=== PATIENT | female | born 1945 | race Caucasian/White ===

== ENCOUNTER 2018-01-27 17:18 | Observation (INO) | payer MEDICARE ==
[~2018-01-27] VITALS: Ht 154.9 cm; Wt 47.9 kg
[~2018-01-27 17:18] MED LIST: AMOX500 PO; ANAS1 PO; CELE100 PO; CITA20 PO; CLON1 PO; HYDACE10B PO; HYDACE5 PO; HYDACE7.5 PO; HYDCHL50 PO; OXYACE5T PO; OXYC10TA19 PO; PSEU120ER PO; VITS/SUPPS; Zithromax250 MG PO; [UNRECOGNIZED DRUG - OTHER]
[2018-01-27 17:54] LABS: BASOPHILS ABSOLUTE AUTO 0.02 K/mm3 (0.00-0.23); BASOPHILS PERCENT AUTO 0 % (0-2); EOSINOPHILS ABSOLUTE AUTO 0.06 K/mm3 (0.00-0.68); EOSINOPHILS PERCENT AUTO 1 % (0-6); Hematocrit 39.8 % (33.0-51.0); Hemoglobin 13.5 g/dL (11.5-16.0); IMMATURE GRAN ABSOLUTE AUTO 0.01 K/mm3 (0.00-0.10); IMMATURE GRAN PERCENT AUTO 0 % (0-1); LYMPHOCYTES ABSOLUTE AUTO 0.75 K/mm3 (0.84-5.20); LYMPHOCYTES PERCENT AUTO 16 % (21-46); MONOCYTES ABSOLUTE AUTO 0.34 K/mm3 (0.16-1.47); MONOCYTES PERCENT AUTO 7 % (4-13); Mean Corpuscular HGB 33.5 pg (26.0-34.0); Mean Corpuscular HGB Conc 33.9 g/dL (31.5-36.5); Mean Corpuscular Volume 99 fL (80-100); Mean Platelet Volume 9.5 fL (9.1-12.4); NEUTROPHILS ABSOLUTE AUTO 3.54 K/mm3 (1.96-9.15); NEUTROPHILS PERCENT AUTO 75 % (41-73); Platelet Count 267 K/mm3 (150-400); RDW Coefficient Variation 14.4 % (11.7-14.2); RDW Standard Deviation 52.7 fL (35.1-46.3); Red Blood Cell Count 4.03 M/mm3 (3.80-5.20); White Blood Cell Count 4.72 K/mm3 (4.00-11.30)
[2018-01-27 18:15] LABS: Magnesium, Blood 1.5 mg/dL (1.6-2.4); Troponin I <0.015 ng/mL (0.000-0.040)
[2018-01-27 18:24] LABS: Alanine Aminotransfer (ALT/SGP 15 U/L (12-78); Albumin, Blood 3.2 g/dL (3.4-5.0); Albumin/Globulin Ratio 0.7 (0.8-1.8); Alk Phos 95 U/L (50-136); Anion Gap 7 mmol/L (6-16); Aspartate Aminotrans (AST/SGOT 19 U/L (12-37); Bilirubin, Total 0.4 mg/dL (0.1-1.0); Blood Urea Nitrogen 11 mg/dL (8-24); Bun/Creatinine Ratio 22.4 (12.0-20.0); CO2, Blood 34 mmol/L (21-32); Calcium, Blood 9.9 mg/dL (8.5-10.1); Chloride, Blood 99 mmol/L (98-108); Creatinine, Blood 0.49 mg/dL (0.40-1.00); Globulin, Blood 4.7 g/dL (2.2-4.0); Glomerular Filtration Rate >60 (60-); Glucose, Blood 105 mg/dL (70-99); Potassium, Blood 2.4 mmol/L (3.5-5.5); Sodium, Blood 140 mmol/L (136-145); Total Protein, Blood 7.9 g/dL (6.4-8.2)
[2018-01-27] MEDS ORDERED: RISP.5 PO (18:59)
[2018-01-27] MEDS ORDERED: DULO30 (22:35)
[2018-01-28 01:41] LABS: Source, Urine Clean Catch
[2018-01-28 01:43] LABS: Bilirubin, Urine Neg (Neg); Blood, Urine Neg (Neg); Glucose Qualitative, Urine Neg (Neg); Ketones, Urine 3+ (Neg); Leukocyte Esterase, Urine Neg (Neg); Nitrite, Urine Neg (Neg); Protein, Urine 3+ (Neg); Urobilinogen, Urine NORM (Normal)
[2018-01-28 01:53] LABS: Appearance, Urine Clear (Clear); Color, Urine Yellow (P-Yellow)
[2018-01-28 01:54] LABS: Bacteria Not Seen /hpf; Mucus Light (0-Heavy); Red Blood Cells, Urine Rare /hpf (0-2); Squamous Epithelial Cells Few /hpf (Few); White Blood Cells, Urine Rare /hpf (0-5)
[2018-01-28 03:14] LABS: Magnesium, Blood 2.1 mg/dL (1.6-2.4)
[2018-01-28 03:39] LABS: Albumin, Blood 3.2 g/dL (3.4-5.0); Anion Gap 9 mmol/L (6-16); Blood Urea Nitrogen 13 mg/dL (8-24); Bun/Creatinine Ratio 32.5 (12.0-20.0); CO2, Blood 31 mmol/L (21-32); Calcium, Blood 9.4 mg/dL (8.5-10.1); Chloride, Blood 100 mmol/L (98-108); Glomerular Filtration Rate >60 (60-); Glucose, Blood 95 mg/dL (70-99); Phosphorus, Blood 2.5 mg/dL (2.5-4.9); Potassium, Blood 2.4 mmol/L (3.5-5.5); Sodium, Blood 140 mmol/L (136-145)
[2018-01-28] MEDS ORDERED: FENT50TP TOP (16:12)
[2018-01-28] MEDS ORDERED: POTCHL20ER PO (16:12)
== END 2018-01-28 16:23 | disposition home or self-care (01) ==
LOC: ER 17:18 → MEDS 17:19
PROVIDERS: Emergency Medicine; Family Medicine
DX: E87.6 Hypokalemia (principal); G89.29 Other chronic pain; E83.42 Hypomagnesemia; I49.3 Ventricular premature depolarization; C50.911 Malignant neoplasm of unspecified site of right female breast; C34.90 Malignant neoplasm of unspecified part of unspecified bronchus or lung; C20 Malignant neoplasm of rectum; F17.210 Nicotine dependence, cigarettes, uncomplicated; Z91.040 Latex allergy status; Z79.899 Other long term (current) drug therapy; Z90.11 Acquired absence of right breast and nipple
CPT/HCPCS: 36415; 71046; 80053; 80069; 81001; 83735; 83880; 84132; 84484; 85025; 93005; 93010; 96365; 96366; 96367; 96375; 99285; G0378; J0360; J2001; J2060; J3475; J3480; J7030

== ENCOUNTER → 2019-08-12 | Outpatient (CLI) | payer MEDICARE ==
[~2019-08-12] MED LIST changes: +DULO30; +FENT50TP TOP; +POTCHL20ER PO; +RISP.5 PO
[2019-08-15 14:49] LABS: Stool Occult Blood Guaiac 1 Neg (Neg); Stool Occult Blood Guaiac 2 Neg (Neg)
[2019-08-15 14:50] LABS: Stool Occult Blood Guaiac 3 Neg (Neg)
== END | disposition home or self-care (01) ==
LOC: OLS 15:46 → LAB 15:46 → LAB SHORT 15:46 → LAB FUT 07-23 15:25
PROVIDERS: Internal Medicine
DX: D64.9 Anemia, unspecified (principal)
CPT/HCPCS: 82272

== ENCOUNTER 2020-03-09 11:50 | Inpatient (IN) | payer MEDICARE ==
[~2020-03-09] VITALS: Ht 152.4 cm; Wt 51.6 kg
[2020-03-09 12:37] LABS: BASOPHILS ABSOLUTE AUTO 0.03 K/mm3 (0.00-0.23); BASOPHILS PERCENT AUTO 0 % (0-2); EOSINOPHILS ABSOLUTE AUTO 0.08 K/mm3 (0.00-0.68); EOSINOPHILS PERCENT AUTO 1 % (0-6); Hematocrit 30.8 % (33.0-51.0); Hemoglobin 10.2 g/dL (11.5-16.0); IMMATURE GRAN ABSOLUTE AUTO 0.04 K/mm3 (0.00-0.10); IMMATURE GRAN PERCENT AUTO 1 % (0-1); LYMPHOCYTES ABSOLUTE AUTO 0.77 K/mm3 (0.84-5.20); LYMPHOCYTES PERCENT AUTO 9 % (21-46); MONOCYTES ABSOLUTE AUTO 1.07 K/mm3 (0.16-1.47); MONOCYTES PERCENT AUTO 13 % (4-13); Mean Corpuscular HGB 34.8 pg (26.0-34.0); Mean Corpuscular HGB Conc 33.1 g/dL (31.5-36.5); Mean Corpuscular Volume 105 fL (80-100); Mean Platelet Volume 10.2 fL (9.1-12.4); NEUTROPHILS ABSOLUTE AUTO 6.32 K/mm3 (1.96-9.15); NEUTROPHILS PERCENT AUTO 76 % (41-73); Platelet Count 210 K/mm3 (150-400); RDW Coefficient Variation 13.9 % (11.7-14.2); RDW Standard Deviation 53.3 fL (35.1-46.3); Red Blood Cell Count 2.93 M/mm3 (3.80-5.20); White Blood Cell Count 8.31 K/mm3 (4.00-11.30)
[2020-03-09] MEDS ORDERED: ALPRAZOLAM0.5 M1 PO (12:37)
[2020-03-09] MEDS ORDERED: DULOXETINE HCL60 M1 PO ×2 (12:41→16:05)
[2020-03-09] MEDS ORDERED: Klor-Con 1010 MEQ PO (12:42)
[2020-03-09 12:47] LABS: International Normalized Ratio 1.01; Prothrombin Time Results 10.8 Sec (9.7-11.5)
[2020-03-09 13:00] LABS: Alanine Aminotransfer (ALT/SGP 14 U/L (12-78); Albumin, Blood 2.5 g/dL (3.4-5.0); Albumin/Globulin Ratio 0.6 (0.8-1.8); Alk Phos 75 U/L (50-136); Anion Gap 6 mmol/L (6-16); Aspartate Aminotrans (AST/SGOT 18 U/L (12-37); Bilirubin, Total 0.8 mg/dL (0.1-1.0); Blood Urea Nitrogen 15 mg/dL (8-24); Bun/Creatinine Ratio 26.6 (12.0-20.0); CO2, Blood 28 mmol/L (21-32); Calcium, Blood 8.9 mg/dL (8.5-10.1); Chloride, Blood 105 mmol/L (98-108); Creatinine, Blood 0.56 mg/dL (0.40-1.00); Globulin, Blood 4.2 g/dL (2.2-4.0); Glomerular Filtration Rate >60 (60-); Glucose, Blood 113 mg/dL (70-99); Potassium, Blood 2.5 mmol/L (3.5-5.5); Sodium, Blood 139 mmol/L (136-145); Total Protein, Blood 6.7 g/dL (6.4-8.2)
[2020-03-09 14:51] LABS: Source, Urine Catheter
[2020-03-09 14:58] LABS: Bilirubin, Urine Neg (Neg); Blood, Urine 1+ (Neg); Glucose Qualitative, Urine Neg (Neg); Ketones, Urine Neg (Neg); Leukocyte Esterase, Urine Neg (Neg); Nitrite, Urine Neg (Neg); Protein, Urine 3+ (Neg); Urobilinogen, Urine 1+ (Normal)
[2020-03-09 15:03] LABS: Appearance, Urine Clear (Clear); Color, Urine Yellow (P-Yellow)
[2020-03-09 15:05] LABS: Bacteria Few /hpf; Red Blood Cells, Urine 0-2 /hpf (0-2); Squamous Epithelial Cells Few /hpf (Few)
[2020-03-09] MEDS ORDERED: HYDROCODONE-AC1 EAC7 PO (16:05)
--- NOTE | 2020-03-09 19:54 | NUR ---
PT ARRIVED TO UNIT FROM ED THIS EVENING. TRANSFERRED TO BED FROM [facility] AND REMOVED EXCESS BEDDING FROM UNDERNEATH PT. ADMINISTERED MEDS PER ORDERS. PT DECLINED MORPHINE, STATING DID NOT NEED IN ADDITION TO ORDERED FENTANYL PATCH. CALL LIGHT IN REACH. REPORTED TO BAKARI CHATTERJEE.
[2020-03-10 04:35] LABS: Hematocrit 29.3 % (33.0-51.0); Hemoglobin 9.7 g/dL (11.5-16.0); Mean Corpuscular HGB 34.6 pg (26.0-34.0); Mean Corpuscular HGB Conc 33.1 g/dL (31.5-36.5); Mean Corpuscular Volume 105 fL (80-100); Platelet Count 203 K/mm3 (150-400); RDW Coefficient Variation 13.8 % (11.7-14.2); RDW Standard Deviation 53.2 fL (35.1-46.3); White Blood Cell Count 6.87 K/mm3 (4.00-11.30)
[2020-03-10 04:56] LABS: Anion Gap 5 mmol/L (6-16); Blood Urea Nitrogen 14 mg/dL (8-24); Bun/Creatinine Ratio 25.9 (12.0-20.0); CO2, Blood 25 mmol/L (21-32); Calcium, Blood 8.3 mg/dL (8.5-10.1); Chloride, Blood 111 mmol/L (98-108); Creatinine, Blood 0.54 mg/dL (0.40-1.00); Glomerular Filtration Rate >60 (60-); Glucose, Blood 99 mg/dL (70-99); Potassium, Blood 3.4 mmol/L (3.5-5.5); Sodium, Blood 141 mmol/L (136-145)
--- NOTE | 2020-03-10 06:22 | NUR ---
PT VSS T/O NIGHT. PAIN MGD PER EMAR W/REP RELIEF. RLE SHORTENED/EXT ROTATED, CAP REFILL WNL. PT SHIFTING SELF IN BED, ALLOWING MINIMAL REPOSITIONING. PT NPO POST MIDNIGHT FOR PLAN FOR OR TODAY; IVF CONT PER ORDERS. PT USING CALL LIGHT FOR ASSISTANCE, WILL CONT TO MONITOR UNTIL REP GIVEN TO ONCOMING RN.
--- NOTE | 2020-03-10 15:48 | NUR ---
PT TO OR
--- NOTE | 2020-03-10 19:30 | NUR ---
ARRIVAL TO UNIT PT ARRIVED TO UNIT FROM PACU AT APPROX 1930 S/P RIGHT HIP SURGERY VIA HOSPITAL BED. IS A/OX4. PT DENIES SOB, N/T, OR CP. REPORTS PAIN PEDRO. ABLE TO ASSIT WITH REPOSITIONING SELF. AQUACEL TO RIGHT HIP C.D.I. IVF INFUSING PER ORDERS. IBARRA IN PLACE DRAINING CL YELLOW URINE. SCD AND ICE IN PLACE. PT RESTING IN BED WITH CALL LIGHT IN REACH. WILL CONT TO MONITOR
--- NOTE | 2020-03-11 04:08 | NUR ---
SHIFT SUMMARY POD 1 RIGHT HIP NAILING, AQUACEL C/D/I. A/OX4. PAIN MANAGED WITH PO MEDICATION/ TORADOL, ICE, AND REPOSITIONING. IBARRA IN PLACE DRAINING CL YELLOW URINE. PEDRO PO INTAKE. ENC/EDU I.S USE AND TURN/COUGH/DB. ABX AND IVF INFUSED PER ORDERS. PLAN TO WORK WITH PT/OT. PT CURRENTLY IN BED RESTING WITH EYES CLOSED. HAS CALL LIGHT IN REACH. WILL CONT TO MONITOR AND GIVE REPORT TO ONCOMING RN.
--- NOTE | 2020-03-11 17:18 | NUR ---
summary sitting up in chair much of shift. two person transfer to commode, needs frequent cues to assist self oob and to commode.pt reports pain is currently well controlled at 3/10 to right hip. right hip dressisng dry and intact
[2020-03-12 04:27] LABS: Hematocrit 21.6 % (33.0-51.0); Hemoglobin 6.8 g/dL (11.5-16.0); Mean Corpuscular HGB Conc 31.5 g/dL (31.5-36.5); Mean Platelet Volume 10.4 fL (9.1-12.4); Platelet Count 225 K/mm3 (150-400); RDW Coefficient Variation 14.2 % (11.7-14.2); RDW Standard Deviation 55.7 fL (35.1-46.3)
[2020-03-12 04:31] LABS: Mean Corpuscular Volume 108 fL (80-100)
[2020-03-12 04:46] LABS: Anion Gap 6 mmol/L (6-16); Blood Urea Nitrogen 31 mg/dL (8-24); Bun/Creatinine Ratio 40.3 (12.0-20.0); CO2, Blood 25 mmol/L (21-32); Calcium, Blood 8.1 mg/dL (8.5-10.1); Chloride, Blood 112 mmol/L (98-108); Creatinine, Blood 0.77 mg/dL (0.40-1.00); Glomerular Filtration Rate >60 (60-); Glucose, Blood 122 mg/dL (70-99); Potassium, Blood 4.4 mmol/L (3.5-5.5); Sodium, Blood 143 mmol/L (136-145)
--- NOTE | 2020-03-12 06:57 | NUR ---
POD2 PATIENT UP WITH 1 PERSON ASSIST, GAIT BELT AND FWW. PATIENT IS HAVING PAIN IN HER NECK, THAT IS RELIEVED WITH ICE BAG. SHE IS ALERT AND ORIENTED AND AWARE OF HE LIMITATIONS. SHE IS EATING DRINKING AND VOIDING. HER DRESSINGS ON THE RT LEG AND HIP ARE CLEAR AND DRY. NO ACUTE CHANGES.
[2020-03-12 09:30] LABS: Percent Saturation 29.6 % (15.0-50.0)
--- NOTE | 2020-03-12 10:53 | NUR ---
03/12/20 1053 Sona Dave VERIFICATIONS: EDIT CHART.
--- NOTE | 2020-03-12 19:14 | NUR ---
SHIFT SUMMARY PT HAD BLOOD TRANSFUSION TODAY. WORKED WITH THERAPY. PAIN COULD BE BETTER CONTROLLED BUT PT STATES TOLERABLE. HOPEFUL TO GO HOME INSTEAD OF SNF.
[2020-03-13 04:27] LABS: Hematocrit 26.8 % (33.0-51.0); Hemoglobin 8.7 g/dL (11.5-16.0); Mean Corpuscular HGB 33.6 pg (26.0-34.0); Mean Corpuscular HGB Conc 32.5 g/dL (31.5-36.5); Mean Platelet Volume 9.8 fL (9.1-12.4); Platelet Count 243 K/mm3 (150-400); RDW Standard Deviation 64.2 fL (35.1-46.3); Red Blood Cell Count 2.59 M/mm3 (3.80-5.20)
[2020-03-13 04:29] LABS: Mean Corpuscular Volume 104 fL (80-100)
--- NOTE | 2020-03-13 06:25 | NUR ---
PATIENT UP IN CHAIR MOST OF THE NIGHT. SHE WAS UP AT LEAST ONCE WITH ASSISTANCE TO HELP CLEAN HER UP AFTER SHE WAS INCONTINENT. PATIENT SLEPT FOR LONG PERIODS OF TIME. HER RT HIP, BUTTOCK AND THIGH ARE ALL LARGER THAT THE LT. SHE HAS BRUISING THAT IS STARTING TO SEEP DOWN HER THIGH. WHEN STANDING HER RT LEG IS EXTERNALLY ROTATED. SHE STATES THAT THIS IS NORMAL SHE HAS SCOLIOSIS. NO ACUTE CHANGES SHE LOOKS FORWARD TO [facility]K HOME SOON.
--- NOTE | 2020-03-13 17:53 | NUR ---
SUMMARY PT REPORTS INCREASED PAIN TODAY RIGHT HIP AND UPPER THIGH. PT WAS HESITANT TO PARTICIPATE WITH PT/OT SHE THOUGHT SHE HAD A BLOOD CLOT IN LEG AND THAT SHE SHOULD NOT BE MOVING IT. EDUCATION PROVIDED TO PATIENT REGARFING HEMATOMA. PT IS HOPEFUL HER PAIN IS LESS TOMORROW AND THAT SHE CAN DISCHARGE TO HOME
[2020-03-14 04:44] LABS: Hematocrit 27.4 % (33.0-51.0); Hemoglobin 8.8 g/dL (11.5-16.0); Mean Corpuscular HGB 33.5 pg (26.0-34.0); Mean Corpuscular HGB Conc 32.1 g/dL (31.5-36.5); Mean Corpuscular Volume 104 fL (80-100); Mean Platelet Volume 10.3 fL (9.1-12.4); Platelet Count 289 K/mm3 (150-400); RDW Standard Deviation 61.2 fL (35.1-46.3); Red Blood Cell Count 2.63 M/mm3 (3.80-5.20); White Blood Cell Count 6.51 K/mm3 (4.00-11.30)
[2020-03-14 05:01] LABS: Anion Gap 2 mmol/L (6-16); Blood Urea Nitrogen 20 mg/dL (8-24); Bun/Creatinine Ratio 31.9 (12.0-20.0); CO2, Blood 32 mmol/L (21-32); Chloride, Blood 105 mmol/L (98-108); Creatinine, Blood 0.63 mg/dL (0.40-1.00); Glomerular Filtration Rate >60 (60-); Glucose, Blood 97 mg/dL (70-99); Potassium, Blood 4.5 mmol/L (3.5-5.5); Sodium, Blood 139 mmol/L (136-145)
--- NOTE | 2020-03-14 05:37 | NUR ---
SHIFT SUMMARY POD 4 R GAMMA NAIL. AA0X4, PT UP TO BSC WITH 1 ASSIST. MEDICATED FOR PAIN PER EMAR, TOLERATED WELL, PO PAIN MEDS. PT RESTING IN BED T/O SHIFT. PLAN IS FOR POSSIBLE DISCHARGE TODAY.
--- NOTE | 2020-03-14 11:24 | NUR ---
R UPPER HIP DRESSING CHANGED PER DR. BOSE.
[2020-03-14] MEDS ORDERED: POTCHL20ER PO (14:45)
--- NOTE | 2020-03-14 15:26 | NUR ---
DISCHARGE COMPLETED AT THIS TIME, PT STATE SHE HAS ALL NEEDED MEDICATIONS INCLUDING PAIN MEDS AT HER HOUSE AND DOES NOT NEED ANY RX TO TAKE HOME.
--- NOTE | 2020-03-14 15:50 | NUR ---
DISCHARGE PT DISCHARGED TO HOME WITH HER . PT ESCORTED TO VEHICLE VIA W/C. PT IS A&O X4, RESP UNLABORED, ON RA, VSS. PT IS TOLERATING PO INTAKE, PAIN HAS BEEN WNL WITH 1 PO PERCOCET Q4 HRS PRN. D/C/INSTRUCTIONS PROVIDED, EDUCATION REINFORCED, PT STATES UNDERSTANDING & DENIES QUESTIONS.
== END 2020-03-14 16:00 | disposition home health service (06) | DRG 481 ==
LOC: ER 11:50 → SURS 15:44
PROVIDERS: Emergency Medicine; Internal Medicine; Nurse Practitioner Acute Care; ADMIT Internal Medicine
PROC: 0QS636Z Reposition Right Upper Femur with Intramedullary Internal Fixation Device, Percutaneous Approach (ICD-10-PCS; principal; 2020-03-09)
PROC: 30233N1 Transfusion of Nonautologous Red Blood Cells into Peripheral Vein, Percutaneous Approach (ICD-10-PCS; 2020-03-12)
DX: S72.141A Displaced intertrochanteric fracture of right femur, initial encounter for closed fracture (principal); L76.32 Postprocedural hematoma of skin and subcutaneous tissue following other procedure; W19.XXXA Unspecified fall, initial encounter; Y93.9 Activity, unspecified; D64.9 Anemia, unspecified; E87.6 Hypokalemia; G89.29 Other chronic pain; Z20.828 Contact with and (suspected) exposure to other viral communicable diseases; F41.1 Generalized anxiety disorder; F17.210 Nicotine dependence, cigarettes, uncomplicated; C50.919 Malignant neoplasm of unspecified site of unspecified female breast; Z85.048 Personal history of other malignant neoplasm of rectum, rectosigmoid junction, and anus
CPT/HCPCS: 36415; 36430; 51702; 71045; 73502; 73552; 80048; 80053; 81001; 82728; 83540; 83550; 83735; 85025; 85027; 85610; 86850; 86900; 86901; 86923; 93005; 93010; 96365-59; 96366-59; 96375-59; 96376-59; 97110; 97116; 97162; 97166; 97530; 97535; 99285-25; C1713; C1769; J0690; J1100; J2270; J2405; J2704; J3010; J3480; J7030; J7120; P9016; U0002

== ENCOUNTER → 2021-10-27 | Outpatient (CLI) | payer MEDICARE ==
[~2021-10-27] MED LIST changes: +ALPRAZOLAM0.5 M1 PO; +DULOXETINE HCL60 M1 PO; +HYDROCODONE-AC1 EAC7 PO; +Klor-Con 1010 MEQ PO
[2021-10-27 18:30] LABS: U Amphetamine Screen Not Detected; U Barbituate Screen Not Detected; U Benzodiazapine Screen DETECTED; U Buprenorphine Screen Not Detected; U Cannabinoids Screen Not Detected; U Cocaine Screen Not Detected; U Methadone Screen Not Detected; U Methamphetamine Screen Not Detected; U Opiates Screen DETECTED; U Oxycodone Screen DETECTED; U Phencyclidine Screen Not Detected; U Propoxyphene Screen Not Detected
== END | disposition home or self-care (01) ==
LOC: LAB 13:47 → LAB SHORT 13:47
PROVIDERS: Internal Medicine
DX: Z51.81 Encounter for therapeutic drug level monitoring (principal); Z79.899 Other long term (current) drug therapy

== ENCOUNTER 2022-09-05 17:20 | Emergency (ER) | payer OTHER, MEDICARE ==
[~2022-09-05] VITALS: Ht 149.9 cm; Wt 47.6 kg
== END 2022-09-05 19:55 | disposition home or self-care (01) ==
LOC: ER 17:20
DX: S42.212A Unspecified displaced fracture of surgical neck of left humerus, initial encounter for closed fracture (principal); W01.198A Fall on same level from slipping, tripping and stumbling with subsequent striking against other object, initial encounter; F17.200 Nicotine dependence, unspecified, uncomplicated; Z91.040 Latex allergy status; Z79.899 Other long term (current) drug therapy
CPT/HCPCS: 70450; 73060; 73200

== ENCOUNTER 2023-02-07 07:45 | Day surgery (SDC) | payer MEDICARE, OTHER ==
[~2023-02-07] VITALS: Ht 152.4 cm; Wt 48.9 kg
[~2023-02-07 07:45] MED LIST changes: +BUSP5 PO; +DOCU100 PO; +GUAI600T33 PO; +METO50 PO; +Prednisone10 MG; +VISBIOME 112.51 EACH PO; +XARELTO20 MG PO
--- NOTE | 2023-02-07 08:18 | NUR ---
02/07/23 0818 Kathy Presley 0814 TETRACAINE TO LEFT EYE 0816 PLEDGET TO LEFT EYE BY [facility].FELIBERTO
[2023-02-07 10:50] VITALS: BP 164/95
--- NOTE | 2023-02-07 11:25 | NUR ---
02/07/23 1125 [facility] UPON ARRIVAL TO [facility], PT PULSE SHOWING 150'S, PLACED ON THREE LEAD EKG MONITORING WITH DR LINARES AT BEDSIDE. DR LINARES GAVE ANOTHER 1 MG DOSE OF METOPROLOL, PER DR LINARES SHE HAD ALREADY RECEIVED 2MG PRIOR TO ARRIVAL TO [facility]. PATIENT MONITORED ON THREE LEAD EKG FOLLOWING ADMINISTRATION. PER DR LINARES PATIENT OK TO DISCHARGE IF HR MAINTAINED 100-110. PATIENT MONITORED ON THREE LEAD UNTIL DISCHARGE. HR MAINTAINED 90'S-110 AND PATIENT DID NOT REPORT SOB, CHEST PAIN, HEADACHE, OR HEART POUNDING. PATIENT STATED SHE FELT NORMAL AND EXPRESSED READINESS TO GO HOME. RN DISCUSSED DISCHARGE INSTRUCTIONS WHILE CONTINUING TO MONITOR THREE LEAD AND HEART RATE. PATIENT DISCHARGED WITH HR SUSTAINING 90'S TO 105. PATIENT EDUCATED BY DR LINARES AND RN TO FOLLOW UP WITH PCP AND MONITOR HEART RATE AND BLOOD PRESSURE AT HOME AND TO TAKE HER BLOOD PRESSURE MEDICATIONS PRESCRIBED. PATIENT VERBALIZED UNDERSTANDING.
== END 2023-02-07 11:12 | disposition home or self-care (01) ==
LOC: ORSCSDS 07:45
PROVIDERS: Student in an Organized Health Care Education/Training Program
PROC: 08RK3JZ Replacement of Left Lens with Synthetic Substitute, Percutaneous Approach (ICD-10-PCS; principal; 2023-02-07 09:00)
DX: H25.12 Age-related nuclear cataract, left eye (principal); H21.81 Floppy iris syndrome; Z96.1 Presence of intraocular lens; I10 Essential (primary) hypertension; F17.210 Nicotine dependence, cigarettes, uncomplicated; Z79.899 Other long term (current) drug therapy; Z79.01 Long term (current) use of anticoagulants; G62.9 Polyneuropathy, unspecified
CPT/HCPCS: J2250; J3010; J7040; V2632

== ENCOUNTER 2023-08-05 19:24 | Inpatient (IN) | payer MEDICARE, OTHER ==
[~2023-08-05] VITALS: Ht 152.4 cm; Wt 46.3 kg
[2023-08-05 20:04] LABS: BASOPHILS ABSOLUTE AUTO 0.04 K/mm3 (0.00-0.23); BASOPHILS PERCENT AUTO 0 % (0-2); EOSINOPHILS ABSOLUTE AUTO 0.03 K/mm3 (0.00-0.68); EOSINOPHILS PERCENT AUTO 0 % (0-6); Hemoglobin 9.9 g/dL (11.5-16.0); IMMATURE GRAN ABSOLUTE AUTO 0.05 K/mm3 (0.00-0.10); IMMATURE GRAN PERCENT AUTO 0 % (0-1); LYMPHOCYTES ABSOLUTE AUTO 0.75 K/mm3 (0.84-5.20); LYMPHOCYTES PERCENT AUTO 6 % (21-46); MONOCYTES ABSOLUTE AUTO 1.24 K/mm3 (0.16-1.47); MONOCYTES PERCENT AUTO 10 % (4-13); Mean Corpuscular HGB 33.9 pg (26.0-34.0); Mean Corpuscular HGB Conc 31.9 g/dL (31.5-36.5); Mean Corpuscular Volume 106 fL (80-100); Mean Platelet Volume 10.5 fL (9.1-12.4); NEUTROPHILS ABSOLUTE AUTO 9.89 K/mm3 (1.96-9.15); NEUTROPHILS PERCENT AUTO 82 % (41-73); Platelet Count 229 K/mm3 (150-400); RDW Coefficient Variation 14.2 % (11.7-14.2); RDW Standard Deviation 55.8 fL (35.1-46.3); Red Blood Cell Count 2.92 M/mm3 (3.80-5.20)
[2023-08-05 20:15] LABS: Albumin/Globulin Ratio 0.6 (0.8-1.8); Bilirubin, Total 0.2 mg/dL (0.1-1.0); Bun/Creatinine Ratio 36.9 (12.0-20.0); Calcium, Blood 10.9 mg/dL (8.5-10.1); Creatinine, Blood 1.3 mg/dL (0.40-1.00); Globulin, Blood 5.2 g/dL (2.2-4.0); Potassium, Blood 4.1 mmol/L (3.5-5.5); Total Protein, Blood 8.2 g/dL (6.4-8.2)
[2023-08-05 21:12] LABS: Base Excess Venous -0.3 mmol/L; Bicarbonate Venous 23.5 mmol/L (24.0-30.0)
[2023-08-05 21:13] LABS: pH Blood Venous 7.23 (7.34-7.37)
[2023-08-05 21:29] LABS: Source, Urine Clean Catch
[2023-08-05 21:34] LABS: Bilirubin, Urine Neg (Neg); Blood, Urine 1+ (Neg); Glucose Qualitative, Urine Neg (Neg); Ketones, Urine Neg (Neg); Leukocyte Esterase, Urine Neg (Neg); Nitrite, Urine Neg (Neg); Protein, Urine 3+ (Neg); Urobilinogen, Urine NORM (Normal)
[2023-08-05 21:45] LABS: Appearance, Urine Clear (Clear); Color, Urine Pale Yellow (P-Yellow)
[2023-08-05 21:47] LABS: Bacteria Few /hpf; Red Blood Cells, Urine 0-2 /hpf (0-2); Squamous Epithelial Cells Mod /hpf (Few); White Blood Cells, Urine 0-2 /hpf (0-5)
[2023-08-05 21:51] LABS: Influenza A, PCR NEGATIVE (NEGATIVE); Influenza B, PCR NEGATIVE (NEGATIVE); Resp Syncytial Virus, PCR NEGATIVE (NEGATIVE); SARS-Cov-2 (COVID-19) PCR, MMC NEGATIVE (NEGATIVE)
[2023-08-05 22:01] LABS: U Amphetamine Screen Not Detected; U Barbituate Screen Not Detected; U Benzodiazapine Screen DETECTED; U Buprenorphine Screen Not Detected; U Cannabinoids Screen Not Detected; U Cocaine Screen Not Detected; U Methadone Screen Not Detected; U Methamphetamine Screen Not Detected; U Opiates Screen DETECTED; U Oxycodone Screen Not Detected; U Phencyclidine Screen Not Detected; U Propoxyphene Screen Not Detected
[2023-08-06] VITALS (13 sets, daily range): BP systolic 94–144; BP diastolic 56–72
[2023-08-06] MEDS ORDERED: MAGNESIUM OXID500 MG (00:02)
[2023-08-06] MEDS ORDERED: UNISOM PM PAIN1 EACH (00:02)
[2023-08-06 03:04] LABS: Base Excess Venous 1.1 mmol/L; Bicarbonate Venous 25.2 mmol/L (24.0-30.0); PCO2 Venous 49.7 mmHg (38-42); pH Blood Venous 7.34 (7.34-7.37)
[2023-08-06 03:08] LABS: BASOPHILS ABSOLUTE AUTO 0.02 K/mm3 (0.00-0.23); BASOPHILS PERCENT AUTO 0 % (0-2); EOSINOPHILS ABSOLUTE AUTO 0.02 K/mm3 (0.00-0.68); EOSINOPHILS PERCENT AUTO 0 % (0-6); Hematocrit 24.4 % (33.0-51.0); Hemoglobin 7.5 g/dL (11.5-16.0); IMMATURE GRAN ABSOLUTE AUTO 0.02 K/mm3 (0.00-0.10); IMMATURE GRAN PERCENT AUTO 0 % (0-1); LYMPHOCYTES ABSOLUTE AUTO 0.83 K/mm3 (0.84-5.20); LYMPHOCYTES PERCENT AUTO 9 % (21-46); MONOCYTES ABSOLUTE AUTO 0.79 K/mm3 (0.16-1.47); MONOCYTES PERCENT AUTO 9 % (4-13); Mean Corpuscular HGB Conc 30.7 g/dL (31.5-36.5); Mean Corpuscular Volume 108 fL (80-100); Mean Platelet Volume 10.6 fL (9.1-12.4); NEUTROPHILS ABSOLUTE AUTO 7.19 K/mm3 (1.96-9.15); NEUTROPHILS PERCENT AUTO 81 % (41-73); Platelet Count 190 K/mm3 (150-400); RDW Coefficient Variation 14.2 % (11.7-14.2); Red Blood Cell Count 2.27 M/mm3 (3.80-5.20); White Blood Cell Count 8.87 K/mm3 (4.00-11.30)
[2023-08-06 03:44] LABS: Albumin, Blood 2.5 g/dL (3.4-5.0); Albumin/Globulin Ratio 0.6 (0.8-1.8); Bilirubin, Total 0.2 mg/dL (0.1-1.0); Bun/Creatinine Ratio 33.8 (12.0-20.0); Calcium, Blood 9.7 mg/dL (8.5-10.1); Creatinine, Blood 1.36 mg/dL (0.40-1.00); Globulin, Blood 4.1 g/dL (2.2-4.0); Potassium, Blood 4.7 mmol/L (3.5-5.5); Total Protein, Blood 6.6 g/dL (6.4-8.2)
--- NOTE | 2023-08-06 05:45 | NUR ---
END OF SHIFT SUMMARY PT RESTED MOST OF THE NIGHT WITHOUT ISSUE. SLEEPS DEEP AND EASILY REORIENTED WHEN WOKEN UP. IDENTIFIES TOWN, HOSPITAL, SELF, DAUGHTER, AND APPROX DATE. VSS WITH SPO2 > 93% ON 2-3 LPM NC, HR 80'S, SR WITH SBP 100'S. NO URINE OR BM SINCE ADMIT. DAUGHTER NATHALIE HERE UPON ADMIT, THEN HOME FOR THE NIGHT. DAUGHTER STATES THAT PT MAY HAVE RAN OUT OF PAIN MEDICATION AT HOME AND VISITED FAMILY MEMBERS THAT MAY HAVE PROVIDED OTHER FORMS OF MEDICATION SUCH FENTANYL. PT DOES NOT ADMIT TO USING ANYTHING AT THIS TIME. MEPELEX APPLIED TO REDNESS ON COCCYX AREA. NO OTHER ACUTE CHANGES SINCE BEFORE ADMIT TO ICU. WILL CONTINUE TO MONITOR PT UNTIL REPORT GIVEN TO AM RN.
--- NOTE | 2023-08-06 11:53 | NUR ---
REASSESSMENT PT HAD HER ECHO THIS MORNING AND THEN HAS BEEN SITTING UP IN A CHAIR. SHE IS ALERT AND ABLE TO ANSWER THE ORIENTATION QUESTIONS CORRECTLY, BUT APPEARS CONFUSED WITH FURTHER CONVERSATION. SHE SEEMS TO NOT HEAR QUESTIONS OR NOT FULLY COMPREHEND THEM. SHE REACHES AND GRABS FOR THINGS WITH HER HANDS THAT AREN'T THERE AND HER OVERALL COORDINATION IS OFF. PT'S FLORECITA HAS BEEN AT THE BEDSIDE THIS AM AND SAYS THIS IS NOT HER BASELINE. SHE SAYS PT NORMALLY CAN HOLD AN APPROPRIATE CONVERSATION AND DO HER ADLS WITHOUT ASSISTANCE. PT'S LUNGS ARE CLEAR, ON 1-2L AT REST, HAS NEEDED UP TO 4L WITH ACTIVITY. SR IN THE 90S AT REST, UP TO 1 TEENS WITH ACTIVITY. BP STABLE. PT GOT UP TO BSC AND HAD A BM THIS AM. DR. ORTIZ ROUNDED ON PT AND GAVE OK FOR PT TO EAT, ORDERED PT/OT AND GAVE OK FOR PT TO BE MED NOT TELE. .
--- NOTE | 2023-08-06 16:56 | NUR ---
SHIFT SUMMARY PT'S MENTATION HAS SLOWLY BEEN IMPROVING THROUGHOUT THE DAY. SHE NAPPED MOST OF THE AFTERNOON AND IS NOW AWAKE, IN THE CHAIR, TALKING TO HER DAUGHTER. MOST OF HER CONFUSION NOW SEEMS TO COME FROM HER HEARING LOSS AND NOT BEING ABLE TO HEAR WHAT PEOPLE ARE SAYING. COORDINATION IS STILL A LITTLE OFF, BUT PT DOESN'T SEEM TO BE HALLUCINATING OR PICKING AT THINGS THAT AREN'T THERE. LUNGS ARE CLEAR. ON 2-3L/NC. ATTEMPTED TO WEAN OFF BUT SPO2 WAS 88% ON RA. BP STABLE. GETTING UP TO THE COMMODE TO VOID BUT URINE OUTPUT IS LOW. PT REFUSED A SHOWER FOR MOST OF THE DAY, BUT FINALLY CONCEDED WITH HER DAUGHTER HERE TO HELP CONVINCE HER.
--- NOTE | 2023-08-06 18:35 | NUR ---
TRANSFER PT TRANSFERRED TO 341 VIA WITH RN. PT'S FLORECITA WITH HER AT TIME OF TRANSFER. REPORT GIVEN TO BAKARI SAM. ALL BELONGINGS INCLUDING PT'S DENTURES. CECY IN ROOM WITH PT AT ARRIVAL.
--- NOTE | 2023-08-06 19:24 | NUR ---
DAY SHIFT SUMMARY: PATIENT TRANSFERRED FROM ICU SHORTLY BEFORE SHIFT CHANGE, VIA WHEELCHAIR ESCORT. O2 @ 3LPM VIA NC. STAND AND PIVOT TRANSFER WITH ASSIST. CONTINENT WITH BRIEFS FOR DIGNITY. PLEASANTLY CONFUSED, BUT EASILY RE-ORIENTED. [id number] AND WEARING GLASSES. DAUGHTER, JOEL, IS AT BEDSIDE. REPORT TO ONCOMING RN.
[2023-08-06 21:13] LABS: Stool Occult Blood Guaiac 1 Pos (Neg)
[2023-08-07 02:16] VITALS: BP 186/93
[2023-08-07 03:09] VITALS: BP 145/77
[2023-08-07 05:03] LABS: BASOPHILS ABSOLUTE AUTO 0.01 K/mm3 (0.00-0.23); BASOPHILS PERCENT AUTO 0 % (0-2); EOSINOPHILS ABSOLUTE AUTO 0.21 K/mm3 (0.00-0.68); EOSINOPHILS PERCENT AUTO 3 % (0-6); Hematocrit 25.9 % (33.0-51.0); IMMATURE GRAN ABSOLUTE AUTO 0.06 K/mm3 (0.00-0.10); IMMATURE GRAN PERCENT AUTO 1 % (0-1); LYMPHOCYTES ABSOLUTE AUTO 0.84 K/mm3 (0.84-5.20); LYMPHOCYTES PERCENT AUTO 10 % (21-46); MONOCYTES ABSOLUTE AUTO 0.98 K/mm3 (0.16-1.47); MONOCYTES PERCENT AUTO 12 % (4-13); Mean Corpuscular HGB 33.1 pg (26.0-34.0); Mean Corpuscular HGB Conc 30.9 g/dL (31.5-36.5); Mean Corpuscular Volume 107 fL (80-100); Mean Platelet Volume 10.3 fL (9.1-12.4); NEUTROPHILS ABSOLUTE AUTO 6.38 K/mm3 (1.96-9.15); NEUTROPHILS PERCENT AUTO 75 % (41-73); Platelet Count 195 K/mm3 (150-400); RDW Coefficient Variation 14.1 % (11.7-14.2); RDW Standard Deviation 55.6 fL (35.1-46.3); Red Blood Cell Count 2.42 M/mm3 (3.80-5.20); White Blood Cell Count 8.48 K/mm3 (4.00-11.30)
--- NOTE | 2023-08-07 05:35 | NUR ---
SHIFT SUMMARY NOC PT A/O X 4. PLEASANT AND COOPERATIVE WITH CARE. RECONCILED SOME OF PT RX WITH HOSPITALIST, PT REQUESTED HOME NORCO RX, BUT HOSPITALIST DECLINED TO ORDER, DUE TO PT OD ON HOME NARCOTICS MONDAY, TYLENOL Q6PRN ORDERED INSTEAD. AFTER SHIFT CHANGE PT DAUGHTER REPORTED SILAS RED BLOOD IN PT STOOL, THERE WAS A HAT IN COMMODE, AND SAMPLE COLLECTED AND HOSPITALIST NOTIFIED THAT PT HGB DECREASED FROM 9.9-7.5 OVERNIGHT AND OCCULT STOOL LAB ORDERED, STOOL CAME BACK POSITIVE FOR OCCULT BLOOD AND HOSPITALIST ORDERED GI CONSULT, WHICH HAS BEEN CALLED IN TO ANSWERING SERVICE. SPUTUM SAMPLE ALSO COLLECTED AND AWAITING RESULTS. PT IS ON O2 3L/NC. PT IS CURRENTLY RESTING WITH BED IN LOWEST POSITION, AND CALL LIGHT WITHIN REACH.
[2023-08-07 05:37] LABS: Albumin, Blood 2.6 g/dL (3.4-5.0); Albumin/Globulin Ratio 0.6 (0.8-1.8); Bilirubin, Total 0.3 mg/dL (0.1-1.0); Calcium, Blood 9.6 mg/dL (8.5-10.1); Creatinine, Blood 0.91 mg/dL (0.40-1.00); Globulin, Blood 4.1 g/dL (2.2-4.0); Potassium, Blood 3.8 mmol/L (3.5-5.5); Total Protein, Blood 6.7 g/dL (6.4-8.2)
[2023-08-07 07:58] VITALS: BP 190/82
[2023-08-07 12:29] LABS: Acinetobacter baumannii DNA Not Detected copy/mL (NOT DETECT); Enterobacter cloacae DNA Not Detected copy/mL (NOT DETECT); Escherichia coli DNA Detected Bin 10^4 copy/mL (NOT DETECT); Haemophilus influenzae DNA Not Detected copy/mL (NOT DETECT); Klebsiella aerogenes DNA Not Detected copy/mL (NOT DETECT); Klebsiella oxytoca DNA Not Detected copy/mL (NOT DETECT); Klebsiella pneumoniae DNA Not Detected copy/mL (NOT DETECT); Moraxella catarrhalis DNA Not Detected copy/mL (NOT DETECT); Proteus sp DNA Not Detected copy/mL (NOT DETECT); Pseudomonas aeruginosa DNA Not Detected copy/mL (NOT DETECT); Serratia marcescens DNA Not Detected copy/mL (NOT DETECT)
[2023-08-07 12:30] LABS: Adenovirus DNA Not Detected (NOT DETECT); CTX-M Resistance Gene Not Detected; Chlamydia pneumonia Not Detected (NOT DETECT); Human Coronavirus RNA Not Detected (NOT DETECT); Human Metapneumovirus RNA Not Detected (NOT DETECT); IMP Resistance Gene Not Detected; Influenza virus A RNA Not Detected (NOT DETECT); Influenza virus B RNA Not Detected (NOT DETECT); KPC Resistance Gene Not Detected; Legionella pneumophila Not Detected (NOT DETECT); Mycoplasma pneumoniae Not Detected (NOT DETECT); NDM Resistance Gene Not Detected; OXA-48-like Resistance Gene Not Detected; Parainfluenza virus RNA Not Detected (NOT DETECT); Respiratory syncytial Vir RNA Not Detected (NOT DETECT); Rhinovirus+Enterovirus RNA Not Detected (NOT DETECT); Staphylococcus aureus DNA Not Detected copy/mL (NOT DETECT); Streptococcus agalactiae DNA Not Detected copy/mL (NOT DETECT); Streptococcus pneumoniae DNA Not Detected copy/mL (NOT DETECT); Streptococcus pyogenes DNA Not Detected copy/mL (NOT DETECT); VIM Resistance Gene Not Detected
[2023-08-07 15:16] VITALS: BP 181/99
[2023-08-07 17:10] VITALS: BP 186/96
--- NOTE | 2023-08-07 20:14 | NUR ---
SHIFT SUMMARY: PT A&O X4. PLEASANT ANED COOPERATIVE WITH CARE. PT HAD HTN THIS SHIFT. ORDER PLACED FOR IV HYDRALAZINE. GIVEN PER EMAR W/BP CONTINUING TO RISE. HOSPITALIST AWARE. PT WORKED WITH PT/OT THIS SHIFT. PT 1P W/FWW. AROUND 1700 PT STARTED TO BECOME ANXIOUS. DAUGHTER BELIEVES THIS IS FROM NARCOTIC W/D. XANEX GIVEN W/ NO EFFECT. CALLED HOSPITALIST AND RECEIVED ORDER FOR ONE TIME DOSE PO ZYPREXA. PT DAUGHTER STATED PT WAS HAVING VISUAL HALLUCINATIONS. ON ASSESSMENT, PT WAS NOT HAVING HALLUCINATIONS. PT STATED SHE WAS HAVING HARD TIME BREATHING. 02 SATS @ 100% ON 3L. RT CALLED FOR BREATHING TREATMENT. PT CONTINUES TO HAVE THICK SPUTUM. SPUTUM SAMPLE SENT THIS AM. ZYPREXA APPEARED TO ALSO HAVE MINIMAL EFFECT. DR. DAVID ARRIVED TO CONSULT DURING TIME OF ANXIOUS EPISODE. DAUGHTER IN ROOM TO DISCUSS INTERVENTIONS FOR BLOOD IN STOOL. PT UNABLE TO RECEIVE COLONOSCOPY AT THIS TIME D/T RESPIRATORY ISSUES. MULTIPLE INTERVENTIONS ATTEMPTED TO TRY TO CALM PT ANXIETY. SON AND DAUGHTER IN ROOM AT THIS TIME. CAMERA OUTSIDE OF ROOM IN CASE BUSINESS DIVISION CHAIR IS IN NEED OF USE. CALL LIGHT IN REACH. BED IN LOWEST POSITION. REPORT GIVEN TO ONCOMING RN.
[2023-08-08] VITALS (7 sets, daily range): BP systolic 162–202; BP diastolic 91–106
--- NOTE | 2023-08-08 05:41 | NUR ---
BP REMAINS ELEVATED. WAS 202/104, THEN DROPPED TO 164/106. NOTIFIED. LABATELOL 10 MG IV X 1 ORDERED. O2 SATS DROPPED TO 70'S. O2 INCREASED TO 4 L/MIN. O2 SATS MID 90'S. HOB ELEVATED. FAMILY AT BEDSIDE FOR COMFORT. CALL LIGHT IN REACH. WILL MONITOR
--- NOTE | 2023-08-08 05:44 | NUR ---
NOC ENGINEER SUMMARY BP ELEVATED. MEDS GIVEN, BUT REMAINED ELEVATED - SEE DOC FLOW SHEETS. NOTIFIED, LABETOLOL IV ORDERED X 1. HAS BEEN ANXIOUS AT INTERVALS THROUGH SHIFT - XANAX GIVEN ORDERED. STILL SOMEWHAT AGITATED AT TIMES. FAMILY AT BEDSIDE FOR COMFORT. O2 SAS DROPPED TO 70'S. O2 INCDREASED TO 4L/MIN NC, SATS BACK TO 90'S. WILL CONTINUE TO MONITOR. CALL LIGHT IN REACH.
[2023-08-08 07:59] LABS: BASOPHILS ABSOLUTE AUTO 0.05 K/mm3 (0.00-0.23); BASOPHILS PERCENT AUTO 0 % (0-2); EOSINOPHILS ABSOLUTE AUTO 0.04 K/mm3 (0.00-0.68); EOSINOPHILS PERCENT AUTO 0 % (0-6); Hematocrit 34.4 % (33.0-51.0); Hemoglobin 11.5 g/dL (11.5-16.0); IMMATURE GRAN ABSOLUTE AUTO 0.11 K/mm3 (0.00-0.10); IMMATURE GRAN PERCENT AUTO 1 % (0-1); LYMPHOCYTES ABSOLUTE AUTO 0.95 K/mm3 (0.84-5.20); LYMPHOCYTES PERCENT AUTO 8 % (21-46); MONOCYTES ABSOLUTE AUTO 1.42 K/mm3 (0.16-1.47); MONOCYTES PERCENT AUTO 12 % (4-13); Mean Corpuscular HGB Conc 33.4 g/dL (31.5-36.5); Mean Platelet Volume 10.2 fL (9.1-12.4); NEUTROPHILS ABSOLUTE AUTO 9.41 K/mm3 (1.96-9.15); NEUTROPHILS PERCENT AUTO 79 % (41-73); Platelet Count 263 K/mm3 (150-400); RDW Coefficient Variation 13.4 % (11.7-14.2); RDW Standard Deviation 48.2 fL (35.1-46.3); Red Blood Cell Count 3.48 M/mm3 (3.80-5.20); White Blood Cell Count 11.98 K/mm3 (4.00-11.30)
[2023-08-08 08:04] LABS: Mean Corpuscular Volume 99 fL (80-100)
[2023-08-08 08:46] LABS: Bun/Creatinine Ratio 21.6 (12.0-20.0); Calcium, Blood 10.3 mg/dL (8.5-10.1); Creatinine, Blood 0.65 mg/dL (0.40-1.00)
[2023-08-08 13:07] LABS: Magnesium, Blood 1.7 mg/dL (1.6-2.4); Thyroid Stimulating Hormone 0.83 uIU/mL (0.360-4.800)
--- NOTE | 2023-08-08 14:14 | NUR ---
Joint visit with Dr Mckeon. Pt resting in bed with her eyes closed. Pt remains with her eyes closed for much of the visit. No S/S of distress at this time. Therapeutic listening offered as family expresses concerns regarding Pt's narcotic use and plan to wean. Dr Mckeon discusses plan with family in agreement. Family reports Pt at baseline is independent of her ADLs. Family reports Pt has been wanting off the narcotics but PCP wanted to wean narcotics for safety. Brief discussion regarding code status wishes. Brief discussion on risks and implications to CPR. Daughter reports plan to discuss further with Pt when Pt is more alert. Family expresses appreciation and report no other concerns at this time. Spoke with Primary RN Darron and discussed case. Palliative Care will remain available
--- NOTE | 2023-08-08 14:26 | NUR ---
AROUND 1050 TELE WAS PLACED ON PT. PT HAD SVT OF 190'S TO 200'S. PT C/O RESPIRATORY DISTRESS. PT ABLE TO SIT IN CHAIR AND HR STARTED TO GO DOWN TO 160'S BUT JUMPED TO 190'S AGAIN. RESIDENT AND HOSPITALIST CALLED AND ARRIVED TO ROOM TO ASSESS PT. EKG COMPLETED, IV METOPROLOL GIVEN W/SIGNIFICANT IMPROVEMENT OF HR IN 90'S AND 02 REMAINING STABLE. PT PLACED ON CONTINUOUS PULSE OX MAINTAINING A PULSE OF 70'S-90'S. PT CURRENTLY RESTING W/O COMPLICATIONS. FAMILY IN ROOM REQUESTING VISIT FROM DOCTOR. DR. RICE ARRIVED TO TALK TO FAMILY AND PLACED PT BACK HOME MEDICINE BOW TO WEAN PT INSTEAD OF TAKING OFF ALL AT ONCE. PALLIATIVE ARRIVED TO TALK TO FAMILY WELL. FAMILY APPRECIATES VISIT.
[2023-08-08 14:43] LABS: Calcium, Blood 10.1 mg/dL (8.5-10.1); Creatinine, Blood 0.62 mg/dL (0.40-1.00)
--- NOTE | 2023-08-08 18:36 | NUR ---
SHIFT SUMMARY: PT A&O X4. PLEASANT AND COOPERATIVE WITH CARE. PT PLACED ON TELE THIS AM. PULSE UP IN 190'S TO 200'S. REFER TO PREVIOUS NOTE FOR DETAILS. PT HAD MULTIPLE EPISODES OF DIARRHEA. ONCE THIS AM AND 5 LOOSE STOOLS THIS AFTERNOON/EVENING. PHONED RESIDENT AND GOT ORDER FOR PRN IMMODIUM. FAMILY IN ROOM. APPRECIATIVE OF DR. RICE AND JOSI ALEXANDER VISITS THIS SHIFT. MEPILEX PLACED ON BOTH ELBOWS AND COCCYX/BOTTOM FOR PREVENTION OF BREAKDOWN. CURRENTLY INFUSING POTASSIUM CHLORIDE. NEW IV IN LFA REMAINS PATENT. PT STILL DOES NOT HAVE MUCH APPETITE. NORCO PROVIDED PRN FOR LOWER BACK PAIN. CALL LIGHT IN REACH. BED IN LOWEST POSITION.
[2023-08-09] VITALS (9 sets, daily range): BP systolic 137–173; BP diastolic 75–98
--- NOTE | 2023-08-09 03:41 | NUR ---
BOOKMOBILE LIBRARIAN SUMMARY HAS BEEN ALERT AND ORIENTED THROUGHOUT SHIFT, IMPROVEMENT FROM LAST NIGHT WHERE SHE WAS QUIET CONFUSED AND FAMILY SPENT THE NIGHT AT BEDSIDE FOR HER COMFORT AND SAFETY. MED TELE ST. BP WAS QUITE ELEVATED EARLIER IN THE SHIFT AND PT RECEIVED XANAX FOR ANXIETY AND PAIN MEDS FOR CP. MEDS EFFECTIVE, PAIN ALLEVIATED AND LESS ANXIOUS, BUT BP REMAINED ELEVATED. WAS 176/95. RECEIVED ANTIHYPERTENSIVE MED. BP LATER TAKEN, MED EFFECTIVE. LATEST BP: 144/75. PT CURRENTLY MORE RELAXED AND HAS BEEN RESTING QUIETLY WITH FEW INTERRUPTIONS. PTS FAMILY CALLED EARLIER, REQUESTED UPDATES. CALL LIGHT IN REACH. WILL CONTINUE TO MONITOR.
--- NOTE | 2023-08-09 05:15 | NUR ---
SUDDEN RUN OF V TACH LASTING ABOUT 15 - 20 MIN (180 -200). PT HAVING SOME SOB. MD NOTIFIED. ORDERED TRANSFER TO PCU, BUT NO BED AVAILABLE, TRANSFERED TO ICU 2. ALERT AND ORIENTED. AIRPORT ENGINEER RECEIVED REPORT. PT TRANSFERRED. DAUGHTER NOTIFIED.
--- NOTE | 2023-08-09 05:34 | NUR ---
TRANSFER NOTE PT ARRIVED FROM MEDICAL FLOOR TRANSFER FOR SVT. PT IS NOT IN SVT AT THE CURRENT TIME. DR VALDOVINOS NOTIFIED PT IS NO LONGER IN SVT. PT IS ST W/PAC IN THE 90-100S. SHE IS ALERT AND ORIENTED X4, ABLE TO [place]. SHE HAS GENERALIZED WEAKNESS. SHE IS PLEASANT. SHE IS WEARING ATTENDS, SHE HAD HAD AN INCONTINENT STOOL, NO BLOOD NOTED. INCONTINENT CARE PROVIDED. LABS ARE PENDING AND PT IS IN NO ACUTE DISTRESS AT THE CURRENT TIME. SHE IS ON 3LNC, OXYGEN SAT 100%. SHE DENIES ANY PAIN/DISCOMFORT.
[2023-08-09 08:55] LABS: Bun/Creatinine Ratio 22.7 (12.0-20.0); Calcium, Blood 9.9 mg/dL (8.5-10.1); Creatinine, Blood 0.79 mg/dL (0.40-1.00); Magnesium, Blood 1.7 mg/dL (1.6-2.4)
--- NOTE | 2023-08-09 09:00 | NUR ---
SVT AT [address] HERNANDEZ PATIENT HR INCREASED TO 180'S. ATTEMPTED VAGAL MANEUVERS WITHOUT SUCCESS. LOPRESSOR 5MG IV ADMININSTERED AND PATIENT HR RETURNED TO 100'S-110'S. PATIENT HAD MINIMAL SYMPTOMS THROUGHOUT EPISODE AND BP MAINTAINED.
[2023-08-09] MEDS ORDERED: RISP.25 PO (13:04)
--- NOTE | 2023-08-09 13:43 | NUR ---
SHIFT SUMMARY PATIENT WAS UP IN CHAIR FOR ABOUT AN HOUR THIS MORNING. USED FWW AND GAIT BELT WITH 1 PERSON ASSIST. 60 MEQ KCL PO ADMINISTERED FOR K+ OF 3.0, 1G MAG SULFATE FOR MAG 1.7. RECHECKS ORDERED FOR 1400. PATIENT HAD ONE EPISODE OF SVT-SEE PREVIOUS NURSE NOTE. NO OTHER CHANGES THIS SHIFT. REPORT GIVEN TO BAKARI LISA
[2023-08-09 14:24] LABS: Bun/Creatinine Ratio 23.3 (12.0-20.0); Calcium, Blood 9.7 mg/dL (8.5-10.1); Creatinine, Blood 0.86 mg/dL (0.40-1.00); Magnesium, Blood 2.3 mg/dL (1.6-2.4); Potassium, Blood 4.1 mmol/L (3.5-5.5)
--- NOTE | 2023-08-09 14:57 | NUR ---
care assumption this rn assumed care at 1420. patient transfered to pcu from icu and transferd to pcu bed via stand by assist. patient uses a front wheel walker at baseline. patient is alert and oriented x4. perrla. spo2>95% on 2l nc. patient uses 2l nc at night for baseline. patient lung sounds fine expiratory crackles in right middle and lower lobes. patient left lower lobe dim fine expiratory crackles. patient has reddness to coccyx that is blanchable, mepilex in place for prevention. patient has reddness that is blanchable to elbows, and mepilex in place for prevention. patient can reposition self indepdently. patient transfered to bedside comode with a stand by assist. patient oriented to room and call light. see shift assessment for further detials. plan of care is up to date at this time.
--- NOTE | 2023-08-09 17:29 | NUR ---
shift summary patient neuro remains intact. this rn gave an update to derrick, jp daughter. no acute changes. patient has had multiple loose incontinent bowel movements. patient uses call light appropriately to make needs known. call light within reach
--- NOTE | 2023-08-09 22:32 | NUR ---
PT ALERT AND ORIENTED X 4, COOPERATIVE WITH CARE AND ABLE TO MAKE NEEDS KNOWN. PT ON 2L NC MAINTAINING 02 SATURATION ABOVE 92%, PT DENIES SOB. HR 80S-90S SR, SHE HAD L SIDE OF CHEST/L SHOULDER PAIN AND WAS MEDICATED PER EMAR, DENIES CHEST PRESSURE. PT HAS NOT HAD ANY OUTPUT YET THIS SHIFT, BRIEF ON AND CHANGED PRN. MEPILEX IN PLACE ON R ELBOW AND COCCYX WHICH HAS BLANCHABLE REDNESS. IV LEFT FOREARM PATENT, FLUSHED AND SALINE LOCKED. PT IS RESTING IN BED, CALL LIGHT WITHIN REACH.
[2023-08-10] VITALS (10 sets, daily range): BP systolic 126–171; BP diastolic 72–100
--- NOTE | 2023-08-10 01:54 | NUR ---
PT SAID SHE WAS FEELING 8/10 ANXIETY, MEDICATED PER EMAR, EDUCATED PT THAT HER MEDS ARE PRN UP TO 3 TIMES A DAY. PT STARTED TO FEEL NAUSEOUS WELL, MEDICATED PER EMAR. AFTER MEDICATIONS PT SAID SHE FEELS A LOT BETTER, ANXIETY DOWN TO 4/10 AND NAUSEA GONE. CALL LIGHT WITHIN REACH.
[2023-08-10 04:48] LABS: BASOPHILS ABSOLUTE AUTO 0.04 K/mm3 (0.00-0.23); BASOPHILS PERCENT AUTO 0 % (0-2); EOSINOPHILS ABSOLUTE AUTO 0.22 K/mm3 (0.00-0.68); EOSINOPHILS PERCENT AUTO 2 % (0-6); Hematocrit 32.6 % (33.0-51.0); Hemoglobin 10.7 g/dL (11.5-16.0); IMMATURE GRAN PERCENT AUTO 1 % (0-1); LYMPHOCYTES ABSOLUTE AUTO 1.57 K/mm3 (0.84-5.20); LYMPHOCYTES PERCENT AUTO 15 % (21-46); MONOCYTES ABSOLUTE AUTO 1.02 K/mm3 (0.16-1.47); MONOCYTES PERCENT AUTO 10 % (4-13); Mean Corpuscular HGB 32.8 pg (26.0-34.0); Mean Corpuscular HGB Conc 32.8 g/dL (31.5-36.5); Mean Corpuscular Volume 100 fL (80-100); Mean Platelet Volume 10.5 fL (9.1-12.4); NEUTROPHILS ABSOLUTE AUTO 7.27 K/mm3 (1.96-9.15); NEUTROPHILS PERCENT AUTO 71 % (41-73); Platelet Count 250 K/mm3 (150-400); RDW Coefficient Variation 14.3 % (11.7-14.2); RDW Standard Deviation 52.1 fL (35.1-46.3); Red Blood Cell Count 3.26 M/mm3 (3.80-5.20); White Blood Cell Count 10.22 K/mm3 (4.00-11.30)
--- NOTE | 2023-08-10 04:54 | NUR ---
SHIFT SUMMARY NO ACUTE CHANGES, SEE PREVIOUS NOTES. PT WAS UP IN CHAIR FOR AWHILE THIS MORNING, SHE IS BACK IN BED NOW. SHE CONTINUES TO BE ALERT AND ORIENTED X 4. PT STILL ON 3L NC MAINTAINING 02 SATURATION ABOVE 92%, SOB WITH ACTIVITY. HR 90'S-100'S, L SIDE OF CHEST/L SHOULDER PAIN, REPOSITIONED AND MEDICATED PER EMAR, BP STABLE. PT CONTINUES TO BE INCONTINENT, HAS HAD DIARRHEA TONIGHT, BARRIER CREAM AND MEPILEX PLACED TO BLANCHABLE REDNESS ON COCCYX. PT IS RESTING IN BED, CALL LIGHT WITHIN REACH.
[2023-08-10 05:10] LABS: Bun/Creatinine Ratio 23.2 (12.0-20.0); Calcium, Blood 9.9 mg/dL (8.5-10.1); Creatinine, Blood 0.78 mg/dL (0.40-1.00); Potassium, Blood 4.1 mmol/L (3.5-5.5)
--- NOTE | 2023-08-10 08:00 | NUR ---
CARE ASSUMPTION this rn assumed care at 0700. vital signs stable. sr 70s. patient is alert and oriented x4. perrla. patient is able to make needs known and uses call light appropriate. see shift assessment for further detials. patient reports pain in left shoulder, describes it as sharp radaiting constant. patient refused tyelnol and this rn will give patient pain medication when it is due. patient reports no shortness of breath or chest pain/pressure. patient stated that she is going to go home today, and told md adame while in the room. md adame is going to discuss it with the team and if it is safe to discharge. plan of care is up to date. call light within reach and bed in lowest position
[2023-08-10] MEDS ORDERED: METO100 PO (12:32)
[2023-08-10] MEDS ORDERED: POTA10T PO (12:33)
--- NOTE | 2023-08-10 13:28 | NUR ---
DISCHARGE- PATIENT AND DAUGHTER WERE GIVEN PRINTED AND WRITTEN DISCHARGE INSTRUCTIONS. VERBALIZED UNDERSTANDING, DENIES QUESTIONS. IV WAS DISCONTINUED, CATH INTACT. PT LEFT VIA W/C WITH MARINE PAINTER. STABLE AT TIME OF DISCHARGE.
== END 2023-08-10 13:25 | disposition home or self-care (01) | DRG 871 ==
LOC: ER 19:24 → PCU 22:30 → ICUE 22:30 → MEDS 22:30 → ER 22:30 → ICUE 23:45 → MEDS 08-06 18:35 → ICUE 08-09 05:15 → PCU 08-09 14:13
PROVIDERS: Emergency Medicine; Family Medicine; Internal Medicine; Student in an Organized Health Care Education/Training Program; ADMIT Internal Medicine
PROC: 5A0935A Assistance with Respiratory Ventilation, Less than 24 Consecutive Hours, High Flow/Velocity Cannula (ICD-10-PCS; principal; 2023-08-06)
PROC: 3E03329 Introduction of Other Anti-infective into Peripheral Vein, Percutaneous Approach (ICD-10-PCS; 2023-08-06)
DX: A41.9 Sepsis, unspecified organism (principal); G92.8 Other toxic encephalopathy; J18.9 Pneumonia, unspecified organism; J96.21 Acute and chronic respiratory failure with hypoxia; J96.22 Acute and chronic respiratory failure with hypercapnia; J44.0 Chronic obstructive pulmonary disease with (acute) lower respiratory infection; N17.9 Acute kidney failure, unspecified; R64 Cachexia; Z68.1 Body mass index [BMI] 19.9 or less, adult; T42.4X1A Poisoning by benzodiazepines, accidental (unintentional), initial encounter; J84.10 Pulmonary fibrosis, unspecified; F17.210 Nicotine dependence, cigarettes, uncomplicated; E83.52 Hypercalcemia; F41.1 Generalized anxiety disorder; I27.20 Pulmonary hypertension, unspecified; H25.812 Combined forms of age-related cataract, left eye; I48.91 Unspecified atrial fibrillation; I50.9 Heart failure, unspecified; D64.9 Anemia, unspecified; G89.29 Other chronic pain; Z85.3 Personal history of malignant neoplasm of breast; Z87.81 Personal history of (healed) traumatic fracture; Z79.899 Other long term (current) drug therapy; Z79.01 Long term (current) use of anticoagulants; Z79.52 Long term (current) use of systemic steroids; Z91.040 Latex allergy status; Z11.52 Encounter for screening for COVID-19; Z90.13 Acquired absence of bilateral breasts and nipples; Z79.891 Long term (current) use of opiate analgesic; Z80.0 Family history of malignant neoplasm of digestive organs; Z85.048 Personal history of other malignant neoplasm of rectum, rectosigmoid junction, and anus; Z85.830 Personal history of malignant neoplasm of bone
CPT/HCPCS: 0241U; 36415; 71045; 80048; 80053; 81001; 82270; 82607; 82728; 82746; 82803; 82947; 83540; 83550; 83605; 83735; 83880; 84443; 84484; 85025; 87040; 87070; 87106; 87205; 87633; 93005; 93010; 93306; 94640; 94660; 94664; 94760; 94762; 96365; 96375; 97110; 97116; 97162; 97166; 97535; 99285-25; A9270; J0360; J0456; J0696; J2310; J2405; J2543; J3475; J3480; J7030; J7050; J7120

== ENCOUNTER 2023-09-15 16:02 | Emergency (ER) | payer MEDICARE, OTHER ==
[~2023-09-15] VITALS: Ht 144.8 cm; Wt 47.2 kg
[~2023-09-15 16:02] MED LIST changes: +MAGNESIUM OXID500 MG; +METO100 PO; +POTA10T PO; +RISP.25 PO; +UNISOM PM PAIN1 EACH
[2023-09-15 16:04] VITALS: BP 172/93
== END 2023-09-15 17:41 | disposition home or self-care (01) ==
LOC: ER 16:02
DX: M25.512 Pain in left shoulder (principal); J44.9 Chronic obstructive pulmonary disease, unspecified; I48.91 Unspecified atrial fibrillation; I50.9 Heart failure, unspecified; F17.210 Nicotine dependence, cigarettes, uncomplicated; Z79.01 Long term (current) use of anticoagulants; Z79.52 Long term (current) use of systemic steroids; Z79.899 Other long term (current) drug therapy; Z91.040 Latex allergy status
CPT/HCPCS: 73030; 99283-25

== ENCOUNTER 2024-07-04 18:38 | Inpatient (IN) | payer MEDICARE, OTHER ==
[~2024-07-04] VITALS: Ht 147.3 cm; Wt 48.0 kg
[2024-07-04 19:35] LABS: BASOPHILS ABSOLUTE AUTO 0.01 K/mm3 (0.00-0.23); BASOPHILS PERCENT AUTO 0 % (0-2); EOSINOPHILS ABSOLUTE AUTO 0.05 K/mm3 (0.00-0.68); EOSINOPHILS PERCENT AUTO 1 % (0-6); Hematocrit 33.1 % (33.0-51.0); Hemoglobin 10.6 g/dL (11.5-16.0); IMMATURE GRAN ABSOLUTE AUTO 0.01 K/mm3 (0.00-0.10); IMMATURE GRAN PERCENT AUTO 0 % (0-1); LYMPHOCYTES ABSOLUTE AUTO 0.53 K/mm3 (0.84-5.20); LYMPHOCYTES PERCENT AUTO 12 % (21-46); MONOCYTES ABSOLUTE AUTO 0.49 K/mm3 (0.16-1.47); MONOCYTES PERCENT AUTO 11 % (4-13); Mean Corpuscular HGB 34.6 pg (26.0-34.0); Mean Corpuscular Volume 108 fL (80-100); Mean Platelet Volume 10.8 fL (9.1-12.4); NEUTROPHILS ABSOLUTE AUTO 3.44 K/mm3 (1.96-9.15); NEUTROPHILS PERCENT AUTO 76 % (41-73); Platelet Count 158 K/mm3 (150-400); RDW Coefficient Variation 13.9 % (11.7-14.2); RDW Standard Deviation 54.4 fL (35.1-46.3); Red Blood Cell Count 3.06 M/mm3 (3.80-5.20); White Blood Cell Count 4.53 K/mm3 (4.00-11.30)
[2024-07-04 20:08] LABS: Albumin, Blood 2.8 g/dL (3.4-5.0); Albumin/Globulin Ratio 0.6 (0.8-1.8); Bilirubin, Total 0.2 mg/dL (0.1-1.0); Calcium, Blood 10.1 mg/dL (8.5-10.1); Creatinine, Blood 1.86 mg/dL (0.40-1.00); Globulin, Blood 4.8 g/dL (2.2-4.0); Potassium, Blood 6.4 mmol/L (3.5-5.5); Total Protein, Blood 7.6 g/dL (6.4-8.2)
[2024-07-04] MEDS ORDERED: Insulin Regular 100 Unit/ML 1ML Dose IV ONE (20:25)
[2024-07-04] MEDS ORDERED: Calcium Gluconate 10% 100 MG/ML INJ IV ONE (20:25)
[2024-07-04] MEDS ORDERED: Albuterol 2.5 MG/3 ML VIAL INH SCH (20:25)
[2024-07-04] MEDS ORDERED: Dextrose 50% 50 ML Syringe IV ONE ×3 (20:25→23:10)
[2024-07-04] MEDS ORDERED: Sodium Polystyrene Sulfonate 15GM / 60ML BTL PO ONE (20:25)
[2024-07-04] MEDS ORDERED: Dextrose 50% 50 ML Vial IV ONE ×2 (20:30→21:10)
[2024-07-04] MEDS ORDERED: Ondansetron HCl 2 MG / ML 2ML Vial IV PRN (22:50)
[2024-07-04] MEDS ORDERED: NS 1,000 ML IV SCH ×2 (22:50→23:20)
[2024-07-04] MEDS ORDERED: FLU VACC TS2024-25(6MOS UP)/PF 45 MCG/0.5 ML SYRINGE IM SCH (22:50)
[2024-07-04 22:54] LABS: Calcium, Ionized (POC) 1.27 mmol/L (1.10-1.46); Chloride (POC) 115 mmol/L (98-108); Creatinine (POC) 1.4 mg/dL (0.6-1.0); Glucose (ISTAT POC) 47 mg/dL (70-99); Hemoglobin (POC) 9.5 g/dL (12.0-16.0); Potassium (POC) 4.5 mmol/L (3.5-5.5); Sodium (POC) 148 mmol/L (135-148); Total CO2 (POC) 22 mmol/L (21-32)
[2024-07-04] MEDS ORDERED: Dexamethasone Sodium Phosphate 4 MG/ML 5ML VIAL IV SCH (23:00)
[2024-07-04] MEDS ORDERED: Heparin Sodium,Porcine 5,000 UNIT/0.5 ML SDV SC SCH (23:00)
[2024-07-04] MEDS ORDERED: Sodium Zirconium Cyclosilicate 10 GM Packet PO SCH (23:00)
[2024-07-04] MEDS ORDERED: Dextrose 50% 50 ML Vial ONE (23:04)
[2024-07-04] MEDS ORDERED: Remdesivir (EUA) 200 MG in NS 250 ML IV ONE (23:30)
[2024-07-05 00:51] LABS: Bun/Creatinine Ratio 30.9 (12.0-20.0); Calcium, Blood 9.8 mg/dL (8.5-10.1); Creatinine, Blood 1.65 mg/dL (0.40-1.00); Potassium, Blood 5.4 mmol/L (3.5-5.5)
[2024-07-05] MEDS ORDERED: MAGNESIUM OXID500 MG PO (01:05)
[2024-07-05] MEDS ORDERED: GuaiFENesin 600 MG TabCR PO PRN (01:25)
[2024-07-05] MEDS ORDERED: ALPRAZolam 1 MG Tab PO PRN (01:30)
[2024-07-05] MEDS ORDERED: HYDROcodone 10-APAP 325 TAB PO PRN (01:35)
[2024-07-05] MEDS ORDERED: NS 1,000 ML IV SCH (01:35)
[2024-07-05 02:11] LABS: Base Excess Venous -1.2 mmol/L; Bicarbonate Venous 22.1 mmol/L (24.0-30.0); PCO2 Venous 58.1 mmHg (38-42); pH Blood Venous 7.26 (7.34-7.37)
[2024-07-05] MEDS ORDERED: QUEtiapine Fumarate 50 MG TAB PO PRN (02:45)
[2024-07-05 04:13] VITALS: BP 153/86
[2024-07-05 05:45] LABS: BASOPHILS ABSOLUTE AUTO 0.01 K/mm3 (0.00-0.23); BASOPHILS PERCENT AUTO 0 % (0-2); EOSINOPHILS PERCENT AUTO 0 % (0-6); Hematocrit 30.3 % (33.0-51.0); Hemoglobin 9.6 g/dL (11.5-16.0); IMMATURE GRAN ABSOLUTE AUTO 0.01 K/mm3 (0.00-0.10); IMMATURE GRAN PERCENT AUTO 0 % (0-1); LYMPHOCYTES ABSOLUTE AUTO 0.32 K/mm3 (0.84-5.20); LYMPHOCYTES PERCENT AUTO 7 % (21-46); MONOCYTES ABSOLUTE AUTO 0.14 K/mm3 (0.16-1.47); MONOCYTES PERCENT AUTO 3 % (4-13); Mean Corpuscular HGB 34.4 pg (26.0-34.0); Mean Corpuscular HGB Conc 31.7 g/dL (31.5-36.5); Mean Corpuscular Volume 109 fL (80-100); Mean Platelet Volume 10.8 fL (9.1-12.4); NEUTROPHILS ABSOLUTE AUTO 4.48 K/mm3 (1.96-9.15); NEUTROPHILS PERCENT AUTO 90 % (41-73); Platelet Count 145 K/mm3 (150-400); RDW Coefficient Variation 13.4 % (11.7-14.2); RDW Standard Deviation 54.1 fL (35.1-46.3); Red Blood Cell Count 2.79 M/mm3 (3.80-5.20); White Blood Cell Count 4.96 K/mm3 (4.00-11.30)
[2024-07-05] MEDS ORDERED: ANASTROZOLE1 M7 PO (05:48)
[2024-07-05] MEDS ORDERED: FURO20 PO (05:49)
--- NOTE | 2024-07-05 05:54 | NUR ---
ARRIVAL TO PCU 20 PT A/O X 3. ANXIOUS AND HAS DIFFICULTY FOLLOWING DIRECTIONS WHEN ANXIOUS. STATES "I NEED BY NIGHTTIME MEDS NOW" OVER AND OVER. ABLE TO STATE SHE NEEDS HER ANXIETY, PAIN, AND COUGH MEDS. CALL TO HOSP AND ORDERS RECEIVED. PT UNABLE TO TOLERATE CARE, TRYING TO GET OOB AND THRASHING IN BED. DAUGHTER AT BEDSIDE STATES "SHE'S ONLY LIKE THIS WHEN SHES WITHDRAWING FROM HER PAIN MEDS". MED LIST RECEIVED FROM DAUGHTER. CONFIRMED SHE TAKES TWO 10MG/325MG OF NORCO. DAUGHTER STATES "SHE TAKES THEM LIKE TICTACS". AFTER MEDICATIONS PT ABLE TO TOLERATE CARE AND UP TO BSC WITH ONE ASSIST. HR SR 90'S WITH SPIKES UP TO 140'S WHEN AGITATED. HTN NOTED WHEN ANXIOUS AND PT BEING UNABLE TO HOLD STILL. ON RA TO 2L VIA [place] DEPENDING ON PT BEING SOB. BED ALARM ON. WILL REPORT TO ONCOMING RN.
[2024-07-05 06:07] LABS: Albumin, Blood 2.5 g/dL (3.4-5.0); Albumin/Globulin Ratio 0.6 (0.8-1.8); Bilirubin, Total 0.2 mg/dL (0.1-1.0); Bun/Creatinine Ratio 37.4 (12.0-20.0); Calcium, Blood 9.3 mg/dL (8.5-10.1); Creatinine, Blood 1.07 mg/dL (0.40-1.00); Globulin, Blood 4.1 g/dL (2.2-4.0); Potassium, Blood 5.2 mmol/L (3.5-5.5); Total Protein, Blood 6.6 g/dL (6.4-8.2)
[2024-07-05 07:43] VITALS: BP 110/71
[2024-07-05] MEDS ORDERED: Remdesivir (EUA) 100 MG in NS 250 ML IV SCH (12:00)
[2024-07-05 12:15] VITALS: BP 146/83
[2024-07-05] MEDS ORDERED: ELIQUIS5 M2 PO (12:24)
[2024-07-05] MEDS ORDERED: DULO30 PO (12:26)
[2024-07-05] MEDS ORDERED: Albuterol HFA200 ACT/6.7 GM INH INH PRN (15:10)
[2024-07-05 16:55] VITALS: BP 155/76
[2024-07-05] MEDS ORDERED: Metoprolol Tartrate 25 MG Tab PO SCH (18:00)
[2024-07-05] MEDS ORDERED: Metoprolol Tartrate 25 MG Tab PO ONE ×2 (18:30→21:00)
--- NOTE | 2024-07-05 19:26 | NUR ---
SHIFT SUMMARY: PT A&OX4. FOLLOWS COMMANDS. CALLS APPROPRIATELY AND MAKES NEEDS KNOWN TO STAFF. CARDIAC: SINUS WITH A RATE IN THE 90'S THROUGHOUT THE DAY WITH ONE RUN OF SVT THIS MORNING. PT STARTED TO HAVE MORE RUNS OF SVT AND TACHYCARDIA THIS EVENING AND WAS MEDICATED WITH METOPORLOL PER PROVIDER ORDERS. PT HAS DENIED ANY CP OR SOB THROUGHOUT THE DAY. RESP: ON 2L NC. THIS IS BASELINE FOR PT. DENIES ANY SOB THROUGHOUT SHIFT. GI/: PT USED BSC DURING SHIFT WITH 1P ASSIST. HAS HAD MULTIPLE BOWEL MOVEMENTS TODAY AND AN ADEQUATE AMOUNT OF YELLOW URINE. LINES. 20G LFA. PATENT. NO OTHER SIGNIFICANT EVENTS HAVE HAPPENED DURING THIS SHIFT. REPORT TO OMID VILLEGAS TO ASSUME CARE OF PT.
[2024-07-05 19:57] VITALS: BP 138/98
[2024-07-05] MEDS ORDERED: RisperiDONE 0.25 MG Tab PO SCH (21:00)
[2024-07-05] MEDS ORDERED: Apixaban 5 MG Tab PO SCH (21:00)
[2024-07-05] MEDS ORDERED: DULoxetine HCL 30 MG Cap DR PO SCH (21:00)
[2024-07-05 23:49] VITALS: BP 120/78
--- NOTE | 2024-07-06 02:07 | NUR ---
REPORT CALLED TO JANICE, PT WILL BE MOVED TO ROOM 340
[2024-07-06 02:27] VITALS: BP 147/81
[2024-07-06 06:16] LABS: Albumin, Blood 2.2 g/dL (3.4-5.0); Anion Gap 6 mmol/L (3-11); Blood Urea Nitrogen 40 mg/dL (8-24); Bun/Creatinine Ratio 42.4 (12.0-20.0); CO2, Blood 29 mmol/L (21-32); Calcium, Blood 8.7 mg/dL (8.5-10.1); Chloride, Blood 113 mmol/L (98-108); Creatinine, Blood 0.94 mg/dL (0.40-1.00); Glomerular Filtration Rate 63 (60-); Glucose, Blood 100 mg/dL (70-99); Magnesium, Blood 2.2 mg/dL (1.6-2.4); Phosphorus, Blood 2.7 mg/dL (2.5-4.9); Potassium, Blood 4.4 mmol/L (3.5-5.5); Sodium, Blood 144 mmol/L (136-145)
--- NOTE | 2024-07-06 06:48 | NUR ---
SHIFT SUMMARY PT TRANSFERRED AT 0235 FROM PCU. PT IS COVID POSITIVE. HX OF BREAST CANCER IN REMISSION, BONE CANCER, AND RECTAL CANCER IN REMISSION. HX OF COPD, AFIB, CHF. FAMILY IS VERY INVOLVED AND WANTING TO KNOW UPDATES. FULL CODE. A/O TIMES 4. PT APPEARED VERY TIRED AND APPEARED TO SLEEP THROUGH THE NIGHT WITHOUT ISSUE. BED IN LOW POSITION, CALL LIGHT WITHIN REACH, RAILS TIMES 2.
[2024-07-06 07:38] VITALS: BP 146/88
[2024-07-06] MEDS ORDERED: Metoprolol Tartrate 50 MG Tab PO SCH (09:00)
[2024-07-06] MEDS ORDERED: Anastrozole 1 MG TAB PO SCH (09:00)
[2024-07-06] MEDS ORDERED: Dexamethasone Sod Phos 10 MG/ML 1ML VIAL IV SCH (09:00)
[2024-07-06 13:10] VITALS: BP 176/95
--- NOTE | 2024-07-06 13:34 | NUR ---
NOTIFY CALL FROM [employer] FOR SVT 150 SUSTAINED 2 MINUTES X 3 EPISODES. PT WAS UP WALKING TO THE BATHROOM THE FIRST EPISODE, BUT RESTING IN BED COMFORTABLY THE SECOND TWO EPISODES. BLOOD PRESSURE ELEVATED 176/95. PT DENIES ANY CONCERNS OR SYMPTOMS. DR RIVER NOTIFIED.
[2024-07-06] MEDS ORDERED: Loperamide HCl 2 MG Cap PO PRN (15:25)
--- NOTE | 2024-07-06 16:59 | NUR ---
SHIFT SUMMARY MS COATES HAS HAD LOOSE STOOLS SEVERAL TIMES TODAY. GIVEN IMMODIUM THIS AFTERNOON. SHE C/O CHROIC LEFT SHOULDER AND LEFT BACK PAIN, SAID SHE TAKES REGULAR NORCO AT HOME AND WAS GIVEN 2 NORCO WITH GOOD EFFECT. ON TELEMETRY, SEVERAL CALLS FROM [employer] FOR SVT 150S, PT DENIES ANY SYMPTOMS AT THESE TIMES. DR RIVER KNOWS AND HAS ALTERED HER MEDICATION DOSE. ON OXYGEN 2L NC, PT DENIES FEELING SHORT OF BREATH. DRY COUGH. SHE DECLINED PLAVIX THIS MORNING. HER DAUGHTER VISITED TODAY AND IS VERY INVOLVED IN HER CARE AND HELPS TO DIRECT HER MEDICATIONS AND WHICH ONES SHE TAKES AND DOESN'T TAKE. UP TO BATHROOM WITH 1 PERSON ASSISTANCE. BED LOW, CALL LIGHT IN REACH.
[2024-07-06 19:42] VITALS: BP 144/84
[2024-07-06] MEDS ORDERED: Metoprolol Tartrate 25 MG Tab PO SCH (21:00)
[2024-07-07 04:06] VITALS: BP 168/89
--- NOTE | 2024-07-07 05:20 | NUR ---
SHIFT SUMMARY PT WAS TALKATIVE AND PLEASANT. APPEARED TO BE TO SLEEP THROUGH THE NIGHT WITHOUT ISSUE. PATIENT ASKED FOR WARM BLANKETS. PT ASKED ABOUT HER RECENT HEART RATE AND BLOOD PRESSURE. SPOKE WITH DAUGHTER AND REASSURED HER THAT MOTHER WAS DOING FINE DESPITE PHONE CALL SHE HAD WITH HER . EXPLAINED THAT SHE HAD TAKEN HER HS MEDICATION AND WAS FEELING THE EFFECTS OF THAT. ADVISED I WOULD CALL HER IF THERE WAS A DECLINE IN HER HEALTH. BED IN LOW POSITION, CALL LIGHT WITHIN REACH, RAILS TIMES 2.
[2024-07-07 07:37] VITALS: BP 172/102
[2024-07-07] MEDS ORDERED: ALBU90OI INH (11:09)
[2024-07-07] MEDS ORDERED: LOPE2C PO (11:10)
--- NOTE | 2024-07-07 13:29 | NUR ---
DISCHARGE NOTE MS COATES WAS DISCHARGED HOME WITH HER DAUGHTER AT 1325. [facility] DELIVERED PORTABLE OXYGEN TANK FOR DISCHARGE. PIV REMOVED BY SUPPORT DIRECTOR. MS COATES VERBALISED UNDERSTANDING OF WRITTEN AND VERBAL DISCHARGE INSTRUCTIONS. THEY WERE ALSO REVIEWED BY HER DAUGHTER. SHE HAS CHRONIC PAIN THAT SHE TOOK NORCO FOR THIS MORNING. NO LOOSE STOOL TODAY. UP IN ROOM WITH STANDBY ASSISTANCE. PT SAID SHE FELT READY TO GO HOME AND HAD NO FURTHER QUESTIONS OR CONCERNS AT TIME OF DISCHARGE.
== END 2024-07-07 13:29 | disposition home or self-care (01) | DRG 177 ==
LOC: ER 18:38 → PCU 22:46 → ERHOLD 22:46 → PCU 07-05 00:54 → MEDS 07-06 02:28 → ENPENDDIS 07-07 13:15 → MEDS 07-07 13:29
PROVIDERS: Emergency Medicine; Internal Medicine; Student in an Organized Health Care Education/Training Program; ADMIT Internal Medicine
PROC: XW033E5 Introduction of Remdesivir Anti-infective into Peripheral Vein, Percutaneous Approach, New Technology Group 5 (ICD-10-PCS; principal; 2024-07-04)
PROC: 3E0333Z Introduction of Anti-inflammatory into Peripheral Vein, Percutaneous Approach (ICD-10-PCS; 2024-07-04)
DX: U07.1 COVID-19 (principal); J96.21 Acute and chronic respiratory failure with hypoxia; J96.22 Acute and chronic respiratory failure with hypercapnia; N17.9 Acute kidney failure, unspecified; I48.20 Chronic atrial fibrillation, unspecified; I50.32 Chronic diastolic (congestive) heart failure; J44.1 Chronic obstructive pulmonary disease with (acute) exacerbation; G93.40 Encephalopathy, unspecified; E86.0 Dehydration; Z99.81 Dependence on supplemental oxygen; Z79.01 Long term (current) use of anticoagulants; I27.20 Pulmonary hypertension, unspecified; I08.2 Rheumatic disorders of both aortic and tricuspid valves; Z91.040 Latex allergy status; F41.8 Other specified anxiety disorders; E87.5 Hyperkalemia; Z79.899 Other long term (current) drug therapy; Z85.3 Personal history of malignant neoplasm of breast; F17.210 Nicotine dependence, cigarettes, uncomplicated; Z85.048 Personal history of other malignant neoplasm of rectum, rectosigmoid junction, and anus; Z85.830 Personal history of malignant neoplasm of bone
CPT/HCPCS: 36415; 71045; 76770; 80047; 80048; 80053; 80069; 82803; 82947; 83735; 83880; 84484; 85014; 85025; 93005; 93010; 94644; 94664; 94760; 96374; 96375; 97110; 97161; 97530; 99285-25; A9270; J0248; J0612; J1100; J1644; J1815; J7030; J7050; J7799

== ENCOUNTER 2024-08-06 12:16 | Inpatient (IN) | payer MEDICARE, OTHER ==
[~2024-08-06] VITALS: Ht 152.4 cm; Wt 47.0 kg
[~2024-08-06 12:16] MED LIST changes: +ALBU90OI INH; +ANASTROZOLE1 M7 PO; +DULO30 PO; +ELIQUIS5 M2 PO; +FURO20 PO; +LOPE2C PO; +MAGNESIUM OXID500 MG PO
[2024-08-06] MEDS ORDERED: MAGNESIUM OXID500 MG PO (12:34)
[2024-08-06] MEDS ORDERED: POTA10T PO (12:34)
[2024-08-06] MEDS ORDERED: Albuterol 2.5 MG/3 ML VIAL INH SCH (12:35)
[2024-08-06 13:20] LABS: BASOPHILS ABSOLUTE AUTO 0.03 K/mm3 (0.00-0.23); BASOPHILS PERCENT AUTO 0 % (0-2); EOSINOPHILS ABSOLUTE AUTO 0.09 K/mm3 (0.00-0.68); EOSINOPHILS PERCENT AUTO 1 % (0-6); Hematocrit 27.8 % (33.0-51.0); Hemoglobin 8.8 g/dL (11.5-16.0); IMMATURE GRAN ABSOLUTE AUTO 0.05 K/mm3 (0.00-0.10); IMMATURE GRAN PERCENT AUTO 0 % (0-1); LYMPHOCYTES ABSOLUTE AUTO 0.58 K/mm3 (0.84-5.20); LYMPHOCYTES PERCENT AUTO 4 % (21-46); MONOCYTES ABSOLUTE AUTO 0.35 K/mm3 (0.16-1.47); MONOCYTES PERCENT AUTO 3 % (4-13); Mean Corpuscular HGB 35.3 pg (26.0-34.0); Mean Corpuscular HGB Conc 31.7 g/dL (31.5-36.5); Mean Corpuscular Volume 112 fL (80-100); Mean Platelet Volume 9.7 fL (9.1-12.4); NEUTROPHILS ABSOLUTE AUTO 12.25 K/mm3 (1.96-9.15); NEUTROPHILS PERCENT AUTO 92 % (41-73); Platelet Count 270 K/mm3 (150-400); RDW Coefficient Variation 15.4 % (11.7-14.2); RDW Standard Deviation 63.4 fL (35.1-46.3); Red Blood Cell Count 2.49 M/mm3 (3.80-5.20); White Blood Cell Count 13.35 K/mm3 (4.00-11.30)
[2024-08-06 13:40] LABS: Albumin, Blood 2.7 g/dL (3.4-5.0); Albumin/Globulin Ratio 0.7 (0.8-1.8); Bilirubin, Total 0.4 mg/dL (0.1-1.0); Bun/Creatinine Ratio 30.3 (12.0-20.0); Calcium, Blood 9.1 mg/dL (8.5-10.1); Creatinine, Blood 0.73 mg/dL (0.40-1.00); Globulin, Blood 3.9 g/dL (2.2-4.0); Potassium, Blood 3.2 mmol/L (3.5-5.5); Total Protein, Blood 6.6 g/dL (6.4-8.2)
[2024-08-06] MEDS ORDERED: LORazepam 2 MG/ML 1ML Injection IV ONE (14:00)
[2024-08-06] MEDS ORDERED: CefTRIAXone Sodium 1,000 MG in NS 50 ML IV ONE (14:15)
[2024-08-06] MEDS ORDERED: Bisacodyl 10 MG Supp PR PRN (16:30)
[2024-08-06] MEDS ORDERED: FLU VACC TS2024-25(6MOS UP)/PF 45 MCG/0.5 ML SYRINGE IM SCH (16:35)
[2024-08-06] MEDS ORDERED: Magnesium Hydroxide Conc 10 ML UDC PO PRN (16:35)
[2024-08-06] MEDS ORDERED: Ondansetron 4 MG TAB PO PRN (16:35)
[2024-08-06] MEDS ORDERED: Ipratropium/Albuterol SulF 2.5-0.5MG/3 ML Amp INH SCH (16:35)
[2024-08-06] MEDS ORDERED: Zolpidem Tartrate 5 MG Tab PO PRN (16:40)
[2024-08-06] MEDS ORDERED: HYDROcodone 5-APAP 325 TAB PO PRN ×2 (16:40→17:10)
[2024-08-06] MEDS ORDERED: ALPRAZolam 0.5 MG Tab PO PRN (16:40)
[2024-08-06] MEDS ORDERED: Tiotropium Bromide 2.5 MCG/ACT MIST INHAL (10 ACT/4 GM) INH SCH (16:40)
[2024-08-06] MEDS ORDERED: Mometasone/Formoterol MDI 200/5 mcg 13 GM INH SCH (16:45)
[2024-08-06] MEDS ORDERED: Naloxone HCl 0.4MG / ML 1ML Vial IV PRN (16:45)
[2024-08-06] MEDS ORDERED: Piperacillin/Tazobactam Sod 4.5 GM in NS 100 ML IV ONE (16:50)
[2024-08-06] MEDS ORDERED: METOPROLOL TA37.5 M1 PO (17:05)
[2024-08-06] MEDS ORDERED: ALPRAZolam 0.25 MG Tab PO PRN (17:20)
[2024-08-06 17:49] VITALS: BP 143/84
--- NOTE | 2024-08-06 18:36 | NUR ---
ARRIVAL TO PCU 12 / SHIFT SUMMARY PT ARRIVED TO PCU 12 AT APPROXIMATELY 1730. PT TRANSFERED FROM ER [facility] [place] [facility] [place] 1 [place], CONTIENT VOID WITH SMALL BM. BED BATH GIVEN UPON ARRIVAL. PT TRSNAFERED BACK TO HOSPTIAL BED WITH 1 ASSIST. A&Ox3, DROWSY AND FALL ASLEEP BETWEEN QUESTIONS BUT ANSWERED THEM SOMEWHAT APPROPRIATELY; DAUGHTER AT BEDSIDE REPORTING THIS IS NOT HER BASELINE MENTATION. BP STABLE, SINUS TACH 100's, DENIES CP/PRESSURE. SpO2> 92% 2L VIA NC, DENIES SOB; BIPAP AT BEDSIDE, RT TO SET UP FOR NOC SHIFT. ORIENTED PT AND DAUGHTER TO UNIT/CALL LIGHT. CALL LIGHT IN REACH, BED IN LOWEST POSITION. NO OTHER EVENTS, WILL REPORT TO ONCOMING RN.
[2024-08-06 20:08] VITALS: BP 133/83
[2024-08-06] MEDS ORDERED: Docusate Sodium 100 MG Cap PO SCH (21:00)
[2024-08-06] MEDS ORDERED: Famotidine 20 MG Tab PO SCH (21:00)
[2024-08-06] MEDS ORDERED: GuaiFENesin 600 MG TabCR PO SCH (21:00)
[2024-08-06] MEDS ORDERED: RisperiDONE 0.25 MG Tab PO SCH (21:00)
[2024-08-06] MEDS ORDERED: Lactobacil 2-S.Thermo-Bifido 1 1 Cap PO SCH (21:00)
[2024-08-06] MEDS ORDERED: DULoxetine HCL 60 MG Capsule DR PO SCH (21:00)
[2024-08-06] MEDS ORDERED: Metoprolol Tartrate 50 MG Tab PO SCH (21:00)
[2024-08-06] MEDS ORDERED: Metoprolol Tartrate 25 MG Tab PO SCH (21:00)
[2024-08-06 23:36] VITALS: BP 129/70
[2024-08-07] MEDS ORDERED: MethylPREDNISolone Sod Succ 125 MG Vial IV SCH
[2024-08-07] MEDS ORDERED: Piperacillin/Tazobactam Sod 3.375 GM in NS 100 ML IV SCH (02:00)
[2024-08-07 03:57] VITALS: BP 138/88
[2024-08-07 04:05] LABS: BASOPHILS ABSOLUTE AUTO 0.04 K/mm3 (0.00-0.23); BASOPHILS PERCENT AUTO 0 % (0-2); EOSINOPHILS PERCENT AUTO 0 % (0-6); Hematocrit 25.2 % (33.0-51.0); Hemoglobin 8.2 g/dL (11.5-16.0); IMMATURE GRAN ABSOLUTE AUTO 0.09 K/mm3 (0.00-0.10); IMMATURE GRAN PERCENT AUTO 0 % (0-1); LYMPHOCYTES ABSOLUTE AUTO 0.48 K/mm3 (0.84-5.20); LYMPHOCYTES PERCENT AUTO 2 % (21-46); MONOCYTES ABSOLUTE AUTO 0.51 K/mm3 (0.16-1.47); MONOCYTES PERCENT AUTO 2 % (4-13); Mean Corpuscular HGB 35.2 pg (26.0-34.0); Mean Corpuscular HGB Conc 32.5 g/dL (31.5-36.5); Mean Corpuscular Volume 108 fL (80-100); Mean Platelet Volume 9.9 fL (9.1-12.4); NEUTROPHILS ABSOLUTE AUTO 20.88 K/mm3 (1.96-9.15); NEUTROPHILS PERCENT AUTO 95 % (41-73); Platelet Count 226 K/mm3 (150-400); RDW Coefficient Variation 15.6 % (11.7-14.2); RDW Standard Deviation 61.8 fL (35.1-46.3); Red Blood Cell Count 2.33 M/mm3 (3.80-5.20)
[2024-08-07 04:21] LABS: Magnesium, Blood 1.9 mg/dL (1.6-2.4)
[2024-08-07 04:22] LABS: Bun/Creatinine Ratio 34.7 (12.0-20.0); Calcium, Blood 9.8 mg/dL (8.5-10.1); Creatinine, Blood 0.84 mg/dL (0.40-1.00); Potassium, Blood 3.7 mmol/L (3.5-5.5)
--- NOTE | 2024-08-07 05:23 | NUR ---
SHIFT SUMMARY ASSUMED CARE OF PT AT 1900. PT A&O4, LETHARGIC BUT ABLE TO ANSWER QUESTIONS APPROPRIATELY. PT DENIES CP SPECIFICLLY AND SOB BUT DOES STATE THAT EVERYTHING ALWAYS HURTS. PT RATED HER PAIN 9/10 AND PRN ANALGESICS GIVEN. PT'S DAUGHTER CONCERNED FOR PT POTENTIALLY GOING INTO WITHDRALS D/T THE AMOUNT OF NORCO NORMALLY TAKEN AT HOME. DAUGHTER STATES PT TAKES 10MG OF NORCO 8 TIMES A DAY. PT REFUSED USING BIPAP AT NIGHT AND MAINTAINED O2 SATS IN THE HIGH 90S OVERNIGHT. FIELDSTICK FROM ADMISSION INFILTRATED WHILE ON ZOSYN AND NEW PIV PLACED IN RIGHT UPPER ARM. ICE PACK PLACED ON SITE OF INFILTRATION. VSS OVERNIGHT AND NO TELE CHANGES TO REPORT. PT'S BED ALARM ON, BED IN LOWEST POSITION AND CALL LIGHT WITHIN REACH.
[2024-08-07 07:40] VITALS: BP 133/75
[2024-08-07] MEDS ORDERED: Potassium Chloride 20 MEQ TabCR PO SCH (08:00)
[2024-08-07] MEDS ORDERED: Furosemide 10 MG/ML 4ML Vial IV SCH (09:00)
[2024-08-07] MEDS ORDERED: Furosemide 10 MG / ML 2ML Vial IV SCH (09:00)
[2024-08-07] MEDS ORDERED: Anastrozole 1 MG TAB PO SCH (09:00)
[2024-08-07 11:42] VITALS: BP 140/89
--- NOTE | 2024-08-07 12:01 | NUR ---
UPDATE PT WITH FREQUENT RUNS OF SVT, SVT LASTING A FEW SECONDS. PT DENIES CP/PRESSURE OR PALPATIONS. CALL PLACED TO PROVIDER, NO NEW ORDERS AT THIS TIME. WILL PLACE CALL TO PROVIDER IF SVT IS SUSTAINED PER PROVIDER.
[2024-08-07 15:41] VITALS: BP 129/74
[2024-08-07] MEDS ORDERED: Nicotine 21 MG PATCH TOP SCH (16:10)
--- NOTE | 2024-08-07 17:54 | NUR ---
SHIFT SUMMARY PT ALERT AND ORIETNED TO ALL. THIS AM PT SLOW TO RESPOND TO QUESTIONS BUT ANSWERED APPROPRIATLEY. FASTER RESPONSE TIME AFTER FULLY AWAKENING. SHE IS ABLE TO EXPRESS NEEDS, USES CALL LIGHT APPROPRIATLEY. SINUS RHYTHM, HR IN THE 100'S-130', PT HAD FREQUENT RUNS OF SVT THIS AM IN THE 140'S, PROVIDER WAS NOTIFIED AND NO NEW ORDERS. PT DENIES CP/PRESSURE, NUMB/TINGLING, SBP STABLE. O2 >92% ON 2L VIA NC, DENIES SOB AT THIS TIME. +BS, NONTENDER, PT WITH BM THIS SHIFT. IV OF LEFT FA. PT WITH CHRONIC PAIN OF ARMS, HIPS, LEGS AND BACK, MEDICATED PER EMAR. PT O2 REQUIREMENTS BACK AT BASELINE. WILL CONTINUE TO DIURESIS PT, IV ABX, IV STERIODS. POSSIBLE D/C TOMORROW. WILL CONTINUE TO MONITOR AND REPORT TO [place] RN.
[2024-08-07] MEDS ORDERED: Albuterol 2.5 MG/3 ML VIAL INH PRN (18:15)
--- NOTE | 2024-08-07 18:43 | NUR ---
MEDICATION FOR [facility] PT REPORTS FINDING A PRESCRIPTION BOTTLE IN HER PURSE THAT SHE STATES HAVING FORGOTTEN SHE HAD. PT REPORTS HAVING HAD [facility] BUT HASN'T TAKEN MEDICATION SINCE "THE DAY BEFORE YESTERDAY." PRESCRIPTION FOR 14 DAYS, MARKED BEING FILLED 07/26. DISCUSSED MEDICATION W/ PHARMACIST & PTs HOSPITALIST. NO WHITE COATING NOTED IN PT MOUTH. MD STATES WILL ASSESS PT FOR THRUSH & NEED TO RESUME MEDICATION IN THE MORNING.
[2024-08-07 20:29] VITALS: BP 138/89
[2024-08-07 23:34] VITALS: BP 141/82
[2024-08-08 03:45] VITALS: BP 151/91
[2024-08-08 04:26] LABS: Hematocrit 26.1 % (33.0-51.0); Hemoglobin 8.4 g/dL (11.5-16.0)
[2024-08-08] MEDS ORDERED: Metoprolol Tartrate 50 MG Tab PO SCH ×2 (05:06→09:00)
[2024-08-08 05:16] VITALS: BP 151/110
[2024-08-08 06:13] LABS: Magnesium, Blood 1.9 mg/dL (1.6-2.4); Thyroid Stimulating Hormone 0.476 uIU/mL (0.360-4.800)
[2024-08-08 06:15] LABS: Calcium, Blood 9.2 mg/dL (8.5-10.1); Creatinine, Blood 0.81 mg/dL (0.40-1.00); Phosphorus, Blood 3.1 mg/dL (2.5-4.9); Potassium, Blood 4.7 mmol/L (3.5-5.5)
--- NOTE | 2024-08-08 06:45 | NUR ---
SHIFT SUMMARY ASSUMED CARE OF PT AT 1900. PT A&O4 AND COOPERATIVE IN CARE. PT ABLE TO EXPRESS SELF APPROPRIATLY AND IS PROACTIVE IN MEDICATION ADMINISTRATION. OVERNIGHT PT HAD SEVERAL RUNS OF SVT, CALLED RESIDENT; ORDERED TO INCREASE METOPROLOL TO 50MG. PT BEGAN TO HAVE MORE FREQUENT AND LONGER RUNS, CONTACTED MD AGAIN; ORDERED TO GIVE 50MG METOPROLOL NOW AND LABS. PT'S VSS DENIES WEAKNESS, DIZZINESS AND CHEST PAIN OR PALPATATIONS. ATTEMPTED TO GET EKG WHILE PT IN SVT BUT UNSUCCESSFUL. BED IN LOWEST POSITION AND CALL LIGHT WITHIN REACH.
[2024-08-08 08:22] VITALS: BP 150/90
--- NOTE | 2024-08-08 10:22 | NUR ---
ASSUMPTION OF CARE PT ALERT AND OREINTED, CALM, COOPERATIVE TO CARE. SINUS TACH, IN THE 90'S-100'S, SBP ELEVATED, MEDICATED PER EMAR. PT WITH FREQUENT RUNS OF SVT NOTED ON TELE, SHE IS ASYMPTOMATIC, PROVIDER AWARE, NO NEW ORDERS. 02 >94% ON RA, SHE DENIES SOB AT THIS TIME. +BS, NONTENDER, DENIES PAIN. RIGHT PIV RUNNING PER ORDERS. PUREWICK IN PLACE. DIURESING PT WITH GOOD URINE OUTPUT. PT REPORTS FEELING WEAK AND NOT BEING ABLE TO DO MUCH, PT/OT EVAL ORDERED. PROVIDER TO BEDISIDE TO DISCUSS PLAN OF CARE. SHE IS TO WORK WITH PT/OT BEFORE D/C. SHE WILL D/C HOME WITH A 2 WEEK ZIO PATCH. ANTICIPATING D/C TODAY.
[2024-08-08] MEDS ORDERED: AMOCLA875 PO (13:06)
[2024-08-08] MEDS ORDERED: PRED20 PO (13:06)
--- NOTE | 2024-08-08 15:44 | NUR ---
DISCHARGE SUMMARY PT ALERT AND ORIENTED TO ALL. SINUS TACH IN THE 90'S, DENIES CP/PRESSURE. O2 >94% ON 1L VIA NC, DENIES SOB. VSS. TECH FROM [facility] CAME TO BEDSIDE AND PLACED ZIO PATCH. IV REMOVED FROM FROM PCT, PT TOLERATED WELL. DISCHARGE INSTRUCTIONS REVIEWED WITH PT. PT NOTED UNDERSTANDING, NO QUESTIONS OR CONCERNS AT THIS TIME. PT LEFT VIA WHEELCHAIR WITH PCT.
== END 2024-08-08 15:35 | disposition home health service (06) | DRG 193 ==
LOC: ER 12:16 → PCU 16:30
PROVIDERS: Emergency Medicine; ADMIT Hospitalist
PROC: 5A09357 Assistance with Respiratory Ventilation, Less than 24 Consecutive Hours, Continuous Positive Airway Pressure (ICD-10-PCS; principal; 2024-08-06)
DX: J18.9 Pneumonia, unspecified organism (principal); I50.33 Acute on chronic diastolic (congestive) heart failure; J96.21 Acute and chronic respiratory failure with hypoxia; J44.0 Chronic obstructive pulmonary disease with (acute) lower respiratory infection; I48.91 Unspecified atrial fibrillation; F17.210 Nicotine dependence, cigarettes, uncomplicated; D64.9 Anemia, unspecified; I08.2 Rheumatic disorders of both aortic and tricuspid valves; I27.20 Pulmonary hypertension, unspecified; F41.9 Anxiety disorder, unspecified; F32.A Depression, unspecified; E87.6 Hypokalemia; G89.3 Neoplasm related pain (acute) (chronic); Z79.899 Other long term (current) drug therapy; Z85.3 Personal history of malignant neoplasm of breast; Z85.048 Personal history of other malignant neoplasm of rectum, rectosigmoid junction, and anus; Z85.830 Personal history of malignant neoplasm of bone; Z90.11 Acquired absence of right breast and nipple; Z99.81 Dependence on supplemental oxygen; Z79.01 Long term (current) use of anticoagulants; Z86.16 Personal history of COVID-19; Z91.040 Latex allergy status; Z79.891 Long term (current) use of opiate analgesic
CPT/HCPCS: 36415; 71045; 80048; 80053; 83735; 83880; 84100; 84443; 84484; 85014; 85018; 85025; 93005; 93010; 93246; 93306; 94640; 94660; 94664; 94762; 96374; 96375; 97162; 97530; 99285-25; A9270; J0696; J1940; J2060; J2543; J2919

== ENCOUNTER → 2024-08-15 | Outpatient (CLI) | payer MEDICARE, OTHER ==
[~2024-08-15] MED LIST changes: +AMOCLA875 PO; +BREZTRI AEROS10.7 GM; +JARDIANCE10 MG; +METOPROLOL TA37.5 M1 PO; +PRED20 PO
[2024-08-15 18:18] LABS: Adenovirus F 40/41 Not Detected (NOT DETECT); Astrovirus Not Detected (NOT DETECT); Campylobacter Sp Not Detected (NOT DETECT); Cryptosporidium Not Detected (NOT DETECT); Cyclospora Cayetanensis Not Detected (NOT DETECT); E. Coli O157 Not Detected (NOT DETECT); Entamoeba Histolytica Not Detected (NOT DETECT); Enteroaggregative E. coli-EAEC Not Detected (NOT DETECT); Enteropathogenic E. coli-EPEC Not Detected (NOT DETECT); Enterotoxigenic E. coli-ETEC Not Detected (NOT DETECT); Giardia Lamblia Not Detected (NOT DETECT); Norovirus GI/GII Not Detected (NOT DETECT); Plesiomonas Shigelloides Not Detected (NOT DETECT); Rotavirus A Not Detected (NOT DETECT); Salmonella Sp Not Detected (NOT DETECT); Sapovirus Not Detected (NOT DETECT); Shiga Toxin-prod E. coli-STEC Not Detected (NOT DETECT); Shigella/Enteroin E. coli-EIEC Not Detected (NOT DETECT); Vibrio Cholerae Not Detected (NOT DETECT); Vibrio Sp Not Detected (NOT DETECT); Yersinia Enterocolitica Not Detected (NOT DETECT)
== END ==
LOC: LAB 03:30 → LAB SHORT 03:30
PROVIDERS: Internal Medicine
DX: R19.7 Diarrhea, unspecified (principal)
CPT/HCPCS: 87324; 87507

== ENCOUNTER 2024-10-03 18:08 | Emergency (ER) | payer MEDICARE, OTHER ==
[~2024-10-03] VITALS: Ht 152.4 cm; Wt 49.9 kg
[~2024-10-03 18:08] MED LIST changes: -BREZTRI AEROS10.7 GM; -JARDIANCE10 MG
[2024-10-03 22:02] LABS: BASOPHILS ABSOLUTE AUTO 0.03 K/mm3 (0.00-0.23); BASOPHILS PERCENT AUTO 0 % (0-2); EOSINOPHILS ABSOLUTE AUTO 0.08 K/mm3 (0.00-0.68); EOSINOPHILS PERCENT AUTO 1 % (0-6); Hemoglobin 8.2 g/dL (11.5-16.0); IMMATURE GRAN ABSOLUTE AUTO 0.03 K/mm3 (0.00-0.10); IMMATURE GRAN PERCENT AUTO 0 % (0-1); LYMPHOCYTES ABSOLUTE AUTO 0.35 K/mm3 (0.84-5.20); LYMPHOCYTES PERCENT AUTO 3 % (21-46); MONOCYTES ABSOLUTE AUTO 0.89 K/mm3 (0.16-1.47); MONOCYTES PERCENT AUTO 7 % (4-13); Mean Corpuscular HGB Conc 31.5 g/dL (31.5-36.5); Mean Corpuscular Volume 108 fL (80-100); Mean Platelet Volume 9.9 fL (9.1-12.4); NEUTROPHILS ABSOLUTE AUTO 11.33 K/mm3 (1.96-9.15); NEUTROPHILS PERCENT AUTO 89 % (41-73); Platelet Count 235 K/mm3 (150-400); RDW Coefficient Variation 14.6 % (11.7-14.2); RDW Standard Deviation 58.3 fL (35.1-46.3); Red Blood Cell Count 2.41 M/mm3 (3.80-5.20); White Blood Cell Count 12.71 K/mm3 (4.00-11.30)
[2024-10-03 22:05] LABS: Base Excess Venous 1.3 mmol/L; Bicarbonate Venous 25.1 mmol/L (24.0-30.0); PCO2 Venous 56.5 mmHg (38-42)
[2024-10-03 22:26] LABS: Albumin, Blood 2.6 g/dL (3.4-5.0); Albumin/Globulin Ratio 0.6 (0.8-1.8); Bilirubin, Total 0.3 mg/dL (0.1-1.0); Bun/Creatinine Ratio 26.2 (12.0-20.0); Calcium, Blood 10.8 mg/dL (8.5-10.1); Creatinine, Blood 0.96 mg/dL (0.40-1.00); Globulin, Blood 4.7 g/dL (2.2-4.0); Potassium, Blood 3.9 mmol/L (3.5-5.5); Total Protein, Blood 7.3 g/dL (6.4-8.2)
[2024-10-03 22:47] LABS: Source, Urine Clean Catch
[2024-10-03] MEDS ORDERED: BREZTRI AEROS10.7 GM (22:54)
[2024-10-03] MEDS ORDERED: JARDIANCE10 MG PO (22:54)
[2024-10-03 22:58] LABS: Appearance, Urine Clear (Clear); Bilirubin, Urine Neg (Neg); Blood, Urine Neg (Neg); Glucose Qualitative, Urine 3+ (Neg); Ketones, Urine Neg (Neg); Leukocyte Esterase, Urine Neg (Neg); Nitrite, Urine Neg (Neg); Protein, Urine 1+ (Neg); Specific Gravity, Urine 1.015 (1.003-1.022); Urobilinogen, Urine NORM (Normal)
[2024-10-03 23:02] LABS: Color, Urine Pale Yellow (P-Yellow)
[2024-10-04 00:57] VITALS: BP 98/74
== END 2024-10-04 00:57 | disposition home or self-care (01) ==
LOC: ER 18:08
PROVIDERS: Student in an Organized Health Care Education/Training Program
DX: T40.2X1A Poisoning by other opioids, accidental (unintentional), initial encounter (principal); R41.82 Altered mental status, unspecified; J44.1 Chronic obstructive pulmonary disease with (acute) exacerbation; F17.210 Nicotine dependence, cigarettes, uncomplicated; Z79.51 Long term (current) use of inhaled steroids; Z79.899 Other long term (current) drug therapy; Z91.040 Latex allergy status
CPT/HCPCS: 70450; 71045; 80053; 82803; 83735; 84484; 85025; 93005; 93010; 99285-25

== ENCOUNTER 2024-10-08 13:22 | Inpatient (IN) | payer MEDICARE, OTHER ==
[~2024-10-08] VITALS: Ht 144.8 cm; Wt 44.3 kg
[~2024-10-08 13:22] MED LIST changes: +BREZTRI AEROS10.7 GM; +JARDIANCE10 MG PO
[2024-10-08 14:40] LABS: BASOPHILS ABSOLUTE AUTO 0.04 K/mm3 (0.00-0.23); BASOPHILS PERCENT AUTO 0 % (0-2); EOSINOPHILS ABSOLUTE AUTO 0.17 K/mm3 (0.00-0.68); EOSINOPHILS PERCENT AUTO 1 % (0-6); Hematocrit 29.9 % (33.0-51.0); Hemoglobin 9.3 g/dL (11.5-16.0); IMMATURE GRAN ABSOLUTE AUTO 0.07 K/mm3 (0.00-0.10); IMMATURE GRAN PERCENT AUTO 1 % (0-1); LYMPHOCYTES ABSOLUTE AUTO 0.75 K/mm3 (0.84-5.20); LYMPHOCYTES PERCENT AUTO 6 % (21-46); MONOCYTES ABSOLUTE AUTO 1.25 K/mm3 (0.16-1.47); MONOCYTES PERCENT AUTO 10 % (4-13); Mean Corpuscular HGB 33.6 pg (26.0-34.0); Mean Corpuscular HGB Conc 31.1 g/dL (31.5-36.5); Mean Corpuscular Volume 108 fL (80-100); Mean Platelet Volume 10.7 fL (9.1-12.4); NEUTROPHILS PERCENT AUTO 83 % (41-73); Platelet Count 261 K/mm3 (150-400); RDW Coefficient Variation 14.4 % (11.7-14.2); RDW Standard Deviation 57.4 fL (35.1-46.3); Red Blood Cell Count 2.77 M/mm3 (3.80-5.20); White Blood Cell Count 12.98 K/mm3 (4.00-11.30)
[2024-10-08] MEDS ORDERED: LevoFLOXacin 750 MG/D5W 150ML 150 ML IV ONE (14:45)
[2024-10-08 14:50] LABS: Bun/Creatinine Ratio 23.5 (12.0-20.0); Calcium, Blood 10.3 mg/dL (8.5-10.1); Creatinine, Blood 0.98 mg/dL (0.40-1.00); Potassium, Blood 4.5 mmol/L (3.5-5.5)
[2024-10-08 15:52] LABS: Influenza A, PCR NEGATIVE (NEGATIVE); Influenza B, PCR NEGATIVE (NEGATIVE); Resp Syncytial Virus, PCR NEGATIVE (NEGATIVE); SARS-Cov-2 (COVID-19) PCR, MMC NEGATIVE (NEGATIVE)
[2024-10-08] MEDS ORDERED: CefTRIAXone Sodium 1,000 MG in NS 100 ML IV ONE (17:00)
[2024-10-08] MEDS ORDERED: Doxycycline Hyclate 100 MG in Dextrose 5% 250 ML IV ONE (17:00)
[2024-10-08] MEDS ORDERED: Ipratropium/Albuterol SulF 2.5-0.5MG/3 ML Amp INH SCH (17:55)
[2024-10-08] MEDS ORDERED: NS 1,000 ML IV SCH (17:55)
[2024-10-08] MEDS ORDERED: FLU VACC TS2024-25(6MOS UP)/PF 45 MCG/0.5 ML SYRINGE IM SCH (17:55)
[2024-10-08] MEDS ORDERED: Albuterol 2.5 MG/3 ML VIAL INH PRN (17:55)
[2024-10-08] MEDS ORDERED: ALPRAZolam 0.5 MG Tab PO PRN (19:10)
[2024-10-08] MEDS ORDERED: HYDROcodone 10-APAP 325 TAB PO PRN (19:10)
[2024-10-08] MEDS ORDERED: Zolpidem Tartrate 5 MG Tab PO PRN (19:10)
[2024-10-08] MEDS ORDERED: ELIQUIS5 M2 PO (20:33)
[2024-10-08 20:34] VITALS: BP 117/62
[2024-10-08] MEDS ORDERED: GuaiFENesin 600 MG TabCR PO SCH (21:00)
[2024-10-08] MEDS ORDERED: Magnesium Oxide 400 MG Tab PO SCH (21:00)
[2024-10-08] MEDS ORDERED: Lactobacil 2-S.Thermo-Bifido 1 1 Cap PO SCH (21:00)
[2024-10-08] MEDS ORDERED: Metoprolol Tartrate 25 MG Tab PO SCH (21:00)
[2024-10-08] MEDS ORDERED: Apixaban 5 MG Tab PO SCH (21:00)
[2024-10-08] MEDS ORDERED: RisperiDONE 0.25 MG Tab PO SCH (21:00)
[2024-10-08] MEDS ORDERED: Famotidine 20 MG Tab PO SCH (21:00)
[2024-10-08] MEDS ORDERED: Furosemide 10 MG/ML 4ML Vial IV ONE (22:20)
[2024-10-08] MEDS ORDERED: MethylPREDNISolone Sod Succ 125 MG Vial IV ONE (22:20)
[2024-10-08 22:25] LABS: Base Excess Venous 2.9 mmol/L; Bicarbonate Venous 25.5 mmol/L (24.0-30.0); PCO2 Venous 65.9 mmHg (38-42)
[2024-10-08 22:27] LABS: pH Blood Venous 7.27 (7.34-7.37)
[2024-10-08 22:48] VITALS: BP 134/87
[2024-10-08] MEDS ORDERED: RISP.25 PO (23:09)
[2024-10-08] MEDS ORDERED: FURO20 PO (23:13)
[2024-10-08] MEDS ORDERED: POTA10T PO (23:14)
[2024-10-08] MEDS ORDERED: HYDACE10B PO (23:16)
[2024-10-08 23:25] VITALS: BP 95/63
--- NOTE | 2024-10-08 23:44 | NUR ---
PT ARRIVED FROM ED AT 2020. A&Ox3. PT AND FAMILY ORIENTED TO ROOM. PT ASSISTED TO BSC WITH 2 PERSON ASSIST AND TOLERATED WELL. PT ON 3L OF OXYGEN BUT BASELINE IS 2L. VSS UPON ADMIT. SHORTLY AFTER ARRIVAL, PT HAD RESPIRATORY DISTRESS AND A RAPID RESPONCE WAS CALLED (SEE LABORER PIPELINES INITIATION). PT WAS TRANSFERED TO PCU. REPORT GIVEN TO PCU NURSEABILIO.
[2024-10-09 04:00] VITALS: BP 90/62
[2024-10-09 04:16] LABS: BASOPHILS ABSOLUTE AUTO 0.02 K/mm3 (0.00-0.23); BASOPHILS PERCENT AUTO 0 % (0-2); EOSINOPHILS PERCENT AUTO 0 % (0-6); Hematocrit 30.6 % (33.0-51.0); Hemoglobin 9.2 g/dL (11.5-16.0); IMMATURE GRAN ABSOLUTE AUTO 0.04 K/mm3 (0.00-0.10); IMMATURE GRAN PERCENT AUTO 0 % (0-1); LYMPHOCYTES ABSOLUTE AUTO 0.27 K/mm3 (0.84-5.20); LYMPHOCYTES PERCENT AUTO 3 % (21-46); MONOCYTES ABSOLUTE AUTO 0.12 K/mm3 (0.16-1.47); MONOCYTES PERCENT AUTO 1 % (4-13); Mean Corpuscular HGB 32.4 pg (26.0-34.0); Mean Corpuscular HGB Conc 30.1 g/dL (31.5-36.5); Mean Corpuscular Volume 108 fL (80-100); Mean Platelet Volume 10.2 fL (9.1-12.4); NEUTROPHILS ABSOLUTE AUTO 9.23 K/mm3 (1.96-9.15); NEUTROPHILS PERCENT AUTO 95 % (41-73); Platelet Count 259 K/mm3 (150-400); RDW Coefficient Variation 14.6 % (11.7-14.2); RDW Standard Deviation 58.2 fL (35.1-46.3); Red Blood Cell Count 2.84 M/mm3 (3.80-5.20); White Blood Cell Count 9.68 K/mm3 (4.00-11.30)
[2024-10-09 04:41] LABS: Bun/Creatinine Ratio 30.3 (12.0-20.0); Calcium, Blood 10.3 mg/dL (8.5-10.1); Creatinine, Blood 0.96 mg/dL (0.40-1.00); Potassium, Blood 4.3 mmol/L (3.5-5.5)
[2024-10-09] MEDS ORDERED: Azithromycin 500 MG in NS 250 ML IV SCH (06:00)
--- NOTE | 2024-10-09 06:30 | NUR ---
SHIFT SUMMARY PATIENT ARRIVED TO PCU 16 AFTER A RAPID RESPONSE OCURRED ON MEDICAL FLOOR. SHE WAS MINIMALLY RESPONSIVE AND PLACED ON BIPAP UPON TRANSFER. PATIENT NOTED TO BE TACHYPNIC WITH ACCESSORY MUSCLE USE, COARSE CRACKLES THROUGHOUT ALL LOBES WITH MILD IMPROVEMENT AT THE END OF SHIFT. PATIENT WOKE UP A COUPLE TIMES AND WAS ABLE TO ANSWER ORIENTATION QUESTIONS APPROPRIATELY, VOICE WAS BARELY PERCEPTABLE AND PATIENT FELL BACK ASLEEP WITHIN A COUPLE MINUTES BOTH TIMES. WILL CONTINUE TO MONITOR. CALL LIGHT WITHIN REACH.
[2024-10-09 08:00] VITALS: BP 107/69
[2024-10-09] MEDS ORDERED: MethylPREDNISolone Sod Succ 125 MG Vial IV SCH (09:00)
[2024-10-09] MEDS ORDERED: DULoxetine HCL 60 MG Capsule DR PO SCH (09:00)
[2024-10-09] MEDS ORDERED: Misc. Inhaler INH SCH (09:00)
[2024-10-09] MEDS ORDERED: Anastrozole 1 MG TAB PO SCH (09:00)
[2024-10-09] MEDS ORDERED: Empagliflozin 10 MG TAB PO SCH (09:00)
--- NOTE | 2024-10-09 10:10 | NUR ---
START OF SHIFT THIS RN ASSUMED CARE AT APPROXIMATELY 0700. PT RESTING IN BED WITH BIPAP THAT WAS TRANSITIONED TO OXY MASK THEN NC. PT CURRENTLY ON 5L NC WITH INTENT TO TITRATE DOWN. PT COMPLAINS OF PAIN ON THE BRIDGE OF THE NOSE THAT WAS RELEIVED BY TAKING THE MASK OFF. PT HAS NO OTHER COMPLAINTS AT THIS TIME. WILL CONTINUE THE PLAN OF CARE.
[2024-10-09 12:00] VITALS: BP 129/66
[2024-10-09 13:14] LABS: Base Excess Venous 3.6 mmol/L; Bicarbonate Venous 26.6 mmol/L (24.0-30.0); PCO2 Venous 55.2 mmHg (38-42); pH Blood Venous 7.34 (7.34-7.37)
[2024-10-09] MEDS ORDERED: TPN Consult Notification XX ONE (14:00)
[2024-10-09] MEDS ORDERED: Metoprolol Tartrate 1 MG/ML 5 ML VIAL IV SCH (14:00)
[2024-10-09 14:44] LABS: Triglycerides 101 mg/dL (30-160)
[2024-10-09 16:00] VITALS: BP 123/80
--- NOTE | 2024-10-09 16:17 | NUR ---
SHIFT SUMMARY PT ABLE TO REMAIN ON OXY MASK FOR APPROXIMATELY 4 HOURS UNTIL PT BECAME SOMNOLENT, BIPAP APPLIED, VBG OBTAINED, PROVIDER NOTIFIED. THIS RN SPOKE WITH PT AND PT EXPRESSED SHE WAS OKAY WITH A DH FEEDING TUBE AND TO RECIEVE TUBE FEED FOR NUTRITION AND HYDRATION. PROVIDER ORDERED PPN. PT COMPLAINED OF BRIDGE NOSE PAIN AND WAS AOX4 AT APPROXIMATELY 1600, BIPAP TAKEN OFF AND OXY MASK APPLIED. NO FURTHER COMPLAINTS AT THIS TIME. WILL CONTINUE THE PLAN OF CARE.
[2024-10-09] MEDS ORDERED: Parenteral Electolytes 40 ML,Potassium Phosphate Dibasic 30 MM,Multivitamins 10 ML,ZINC... IV SCH (17:00)
[2024-10-09] MEDS ORDERED: CefTRIAXone Sodium 1,000 MG in NS 100 ML IV SCH (18:00)
[2024-10-09 19:59] VITALS: BP 145/82
[2024-10-09 23:09] VITALS: BP 148/92
[2024-10-10] VITALS (8 sets, daily range): BP systolic 122–170; BP diastolic 70–96
[2024-10-10] MEDS ORDERED: LORazepam 2 MG/ML 1ML Injection IV ONE (00:25)
--- NOTE | 2024-10-10 06:59 | NUR ---
SHIFT SUMMARY PATIENT'S ALERTNESS IMPROVING, ORIENTED X4. CONTINUES TO BE NPO, PPN INFUSING. PATIENT WAS ANXIOUS AND REQUESTING SOMETHING TO HELP HER SLEEP AROUND 2200, SPOKE WITH DR DAVIS WHO PLACED AN ORDER FOR 0.5 MG ATIVAN IV. PATIENT WAS ABLE TO SLEEP A GOOD PORTION OF THE NIGHT. NO OTHER ISSUES NOTED OVERNIGHT. WILL CONTINUE TO MONITOR. CALL LIGHT WITHIN REACH.
[2024-10-10 07:06] LABS: Magnesium, Blood 2.7 mg/dL (1.6-2.4); Phosphorus, Blood 3.8 mg/dL (2.5-4.9)
[2024-10-10 08:53] LABS: Bun/Creatinine Ratio 52.3 (12.0-20.0); Calcium, Blood 10.6 mg/dL (8.5-10.1); Creatinine, Blood 0.98 mg/dL (0.40-1.00)
[2024-10-10] MEDS ORDERED: Mometasone Furoate Inhaler 220 mcg 14 ACT INH SCH ×2 (13:25→21:00)
[2024-10-10] MEDS ORDERED: Ondansetron HCl 2 MG / ML 2ML Vial IV PRN (15:45)
[2024-10-10] MEDS ORDERED: FentaNYL Citrate 50 MCG/ML 2 ML Injection IV PRN (15:50)
[2024-10-10] MEDS ORDERED: Enoxaparin 40 MG/0.4 ML SYR SC SCH (16:00)
[2024-10-10 17:12] LABS: Base Excess Venous 8.7 mmol/L
[2024-10-10 17:14] LABS: pH Blood Venous 7.55 (7.34-7.37)
[2024-10-10] MEDS ORDERED: LORazepam 2 MG/ML 1ML Injection IV PRN (17:30)
--- NOTE | 2024-10-10 18:19 | NUR ---
ALERT AND OREINTED X2-3, FAMILY HELPFUL AT BEDSIDE, BARIUM SWALLOW FAILED ANOTHER ONE ORDERED FOR TOMORROW, PATIENT AWAKE MAJORITY OF AM, MULTIPLE INTERVENTIONS DONE, PATIENT VERY TIRED AFTER AND ON BIPAP FOR 2-3 HOURS, VBG DONE PH 7.55 DR RIVER AWARE, PATIENT MORE ALERT PRESENTLY, NEW PPN BAG INFUSING, PERIWIK IN PLACE, INCREASED ANXIETY AT NIGHT PER FAMILY AND PATIENT, ATIVAN REQUESTED FOR NIGHT, NPO DUE TO FAILED SWALLOW EVAL. TWO IV SITES FAILED, PG IN GOMEZ, AND SAHKEEL. CALL LIGHT WITH IN REACH, WILL RELAY TO PM BAKARI
--- NOTE | 2024-10-10 18:42 | NUR ---
DR RIVER IN ROOM NOW, REPORTING TO PATIENT AND FAMILY
[2024-10-11] VITALS (8 sets, daily range): BP systolic 107–176; BP diastolic 43–96
[2024-10-11 04:23] LABS: Hematocrit 30.6 % (33.0-51.0); Hemoglobin 9.5 g/dL (11.5-16.0); Mean Corpuscular HGB 32.9 pg (26.0-34.0); Mean Corpuscular Volume 106 fL (80-100); Mean Platelet Volume 10.7 fL (9.1-12.4); Platelet Count 285 K/mm3 (150-400); RDW Coefficient Variation 14.6 % (11.7-14.2); RDW Standard Deviation 57.3 fL (35.1-46.3); Red Blood Cell Count 2.89 M/mm3 (3.80-5.20); White Blood Cell Count 11.82 K/mm3 (4.00-11.30)
--- NOTE | 2024-10-11 04:30 | NUR ---
SHIFT SUMMARY PT FAIRLY ANXIOUS OVER NIGHT REQUESTING MORE 'NIGHT MEDS', THEN INTERMITTENTLY SLEEPING. PT VERY VERBAL UNTIL APPROXIMATELY 0400 WHEN PT BECAME MORE DIFFICULT TO ARROUSE. BIPAP MASK PLACED. DAUGHTER UPDATED AT APPROXIMATELY 1900 AND 2300. PPN CONTINUING. WILL CONTINUE THE PLAN OF CARE.
[2024-10-11 04:54] LABS: Magnesium, Blood 2.7 mg/dL (1.6-2.4)
[2024-10-11 04:55] LABS: Bun/Creatinine Ratio 64.5 (12.0-20.0); Calcium, Blood 10.7 mg/dL (8.5-10.1); Creatinine, Blood 0.76 mg/dL (0.40-1.00); Phosphorus, Blood 2.6 mg/dL (2.5-4.9); Potassium, Blood 4.1 mmol/L (3.5-5.5)
[2024-10-11] MEDS ORDERED: NS 250 ML IV PRN (09:45)
[2024-10-11] MEDS ORDERED: Melatonin 3 MG Tab PO PRN (16:55)
[2024-10-11] MEDS ORDERED: LORazepam 0.5 MG Tab PO PRN (16:55)
--- NOTE | 2024-10-11 18:52 | NUR ---
shift summary PT A&OX4 UPON CARE ASSUMPTION. sp02>90% on 2l nc, oximzer placed when sleeping d/t mouth breathing. Telemetry shows nsr 1st degree hr 90. ppn infuisn per emar. call light in reach. family in room
--- NOTE | 2024-10-11 19:52 | NUR ---
START OF SHIFT THIS NURSE ASSUMED CARE AT APPROXIMATELY 1900. PT RESTING COMFORTABLY IN BED WITH FAMILY AND FRIENDS IN THE ROOM. PT HAS NO COMPLAINTS OR CONCERNS AT THIS TIME. PT IS ON OXY MASK SAT 100% ON 2L. WILL CONTINUE THE PLAN OF CARE.
--- NOTE | 2024-10-11 22:02 | NUR ---
IV INFILTRATION PT L ARM APPEARS THE POWERGLIDE INFILTRATED PPN PRIOR TO START OF SHIFT. PPN HAS BEEN DC. LEFT UPPER ARM MEASURES 10CM LATER IN DIAMETER. PHARMACY CALLED AND RECOMMENDED A WARM COMPRESS. CHARGE NURSE NOTIFIED.
[2024-10-12 00:28] VITALS: BP 168/97
[2024-10-12 04:34] VITALS: BP 171/105
--- NOTE | 2024-10-12 05:16 | NUR ---
SHIFT SUMMARY PT RESTING IN BED ON 2L OXY MASK. PT LEFT ARM DECREASED IN SIZE BUT REMAINS SWOLLEN. PPN GTT ONGOING. WILL CONTINUE THE PLAN OF CARE.
[2024-10-12 05:37] LABS: Magnesium, Blood 2.2 mg/dL (1.6-2.4); Phosphorus, Blood 3.2 mg/dL (2.5-4.9)
[2024-10-12 07:17] VITALS: BP 160/88
[2024-10-12] MEDS ORDERED: HYDROcodone 5-APAP 325 TAB PO PRN (12:30)
[2024-10-12 12:44] VITALS: BP 150/89
[2024-10-12] MEDS ORDERED: Metoprolol Tartrate 25 MG Tab PO SCH (13:00)
[2024-10-12 16:27] VITALS: BP 147/93
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
[2024-10-12 19:47] VITALS: BP 141/78
[2024-10-12 19:52] LABS: C DIFFICILE DNA NEGATIVE (Negative)
[2024-10-12] MEDS ORDERED: RisperiDONE 0.25 MG Tab PO SCH (21:00)
[2024-10-13 04:49] LABS: Mean Corpuscular HGB 32.6 pg (26.0-34.0); Mean Corpuscular HGB Conc 32.1 g/dL (31.5-36.5); Platelet Count 223 K/mm3 (150-400); RDW Coefficient Variation 14.5 % (11.7-14.2); RDW Standard Deviation 54.1 fL (35.1-46.3); Red Blood Cell Count 2.76 M/mm3 (3.80-5.20); White Blood Cell Count 8.22 K/mm3 (4.00-11.30)
[2024-10-13 05:12] LABS: Mean Corpuscular Volume 101 fL (80-100)
[2024-10-13 05:32] LABS: Albumin, Blood 2.1 g/dL (3.4-5.0); Anion Gap 9 mmol/L (3-11); Blood Urea Nitrogen 37 mg/dL (8-24); Bun/Creatinine Ratio 52.8 (12.0-20.0); CO2, Blood 31 mmol/L (21-32); Calcium, Blood 9.9 mg/dL (8.5-10.1); Chloride, Blood 102 mmol/L (98-108); Glomerular Filtration Rate 89 (60-); Glucose, Blood 113 mg/dL (70-99); Magnesium, Blood 2.1 mg/dL (1.6-2.4); Phosphorus, Blood 4.1 mg/dL (2.5-4.9); Potassium, Blood 5.3 mmol/L (3.5-5.5); Sodium, Blood 137 mmol/L (136-145)
[2024-10-13 07:20] VITALS: BP 133/84
[2024-10-13] MEDS ORDERED: Diphenoxylat/Atrop 2.5 / 0.025MG 1 Tab PO PRN (12:00)
[2024-10-13 12:38] VITALS: BP 126/67
[2024-10-13 16:24] VITALS: BP 117/64
--- NOTE | 2024-10-13 18:33 | NUR ---
SHIFT SUMMER: NEURO: NO ACUTE CHANGES. CARDIAC: NO ACUTE CHANGES. REMAINED FREE OF ANY CP DURING SHIFT. RESP: PT ON 2L NC WHILE SLEEPING BUT IN RA WHEN AWAKE. DENIES ANY SOB. GI/: PT HAD MULTIPLE EPISODES OF LOOSE STOOL THIS AM AND WAS MEDICATED PER EMAR. PT HAS NOT HAD ANY EPISODES SINCE. PT WAS ABLE TO AMBULATE TO THE BATHROOM WITH SBA ASSIST THIS AFTERNOON. NO SIGNIFICANT EVENTS HAPPENED DURING SHIFT. PLAN TO DC TO HOME TOMORROW. WILL CONTINUE TO CARE FOR PT TILL END OF SHIFT
[2024-10-13 20:25] VITALS: BP 129/67
[2024-10-13 21:21] VITALS: BP 113/69
[2024-10-14 00:17] VITALS: BP 111/64
[2024-10-14 05:30] VITALS: BP 104/74
--- NOTE | 2024-10-14 05:58 | NUR ---
SHIFT SUMMERY PT HAS BEEN ALERT AND ORIENTED X4. BP HAS BEEN WNL. SR ON THE FENDER MECHANIC. PT HAS HAD INCONTINENT STOOL AND URINE OVERNIGHT. SHE HAS HAD NO ACUTE CHANGES THIS SHIFT.
--- NOTE | 2024-10-14 08:00 | NUR ---
INITIAL ASSESSMENT: Patient is alert and oriented x4, she assisted to the BSC and then the chair with minimal assistance with FWW. HRR, SR in the 90s. LS DIM in the bases, biox WNL on 2l via NC. BT+. She is able to take her AM medications whole with applesauce. VSS. The plan is for her to discharge today, call placed to ST to see if its possible for them to evaluate her today before she leaves. She denies other needs at this time. Call light in reach.
[2024-10-14 08:50] VITALS: BP 116/58
[2024-10-14] MEDS ORDERED: DIPATR PO (09:50)
[2024-10-14] MEDS ORDERED: AMOCLA875 PO (09:51)
[2024-10-14] MEDS ORDERED: VISBIOME 112.51 EACH PO (09:51)
[2024-10-14] MEDS ORDERED: XARELTO20 MG PO (09:52)
[2024-10-14 11:19] VITALS: BP 112/76
--- NOTE | 2024-10-14 11:30 | NUR ---
Discharge: Radha LOW has been to see the patient, her diet has been upgraded to soft bite sized and thickened liquids. Scripts were sent to [facility]. put in discharge instructions, these are reviwed with the patient, she verbalizes understanding. Patient to home with daughter via .
== END 2024-10-14 11:30 | disposition home health service (06) | DRG 871 ==
LOC: ER 13:22 → PCU 17:51 → ERHOLD 17:51 → MEDS 20:26 → PCU 22:50
PROVIDERS: Emergency Medicine; Internal Medicine; ADMIT Internal Medicine
DX: A41.9 Sepsis, unspecified organism (principal); J18.9 Pneumonia, unspecified organism; J96.21 Acute and chronic respiratory failure with hypoxia; I48.20 Chronic atrial fibrillation, unspecified; J44.0 Chronic obstructive pulmonary disease with (acute) lower respiratory infection; I50.32 Chronic diastolic (congestive) heart failure; G89.29 Other chronic pain; I27.20 Pulmonary hypertension, unspecified; R13.12 Dysphagia, oropharyngeal phase; Z85.3 Personal history of malignant neoplasm of breast; I48.0 Paroxysmal atrial fibrillation; F17.210 Nicotine dependence, cigarettes, uncomplicated; G47.00 Insomnia, unspecified; Z91.040 Latex allergy status; F32.A Depression, unspecified; F41.9 Anxiety disorder, unspecified; Z90.11 Acquired absence of right breast and nipple; Z92.21 Personal history of antineoplastic chemotherapy; Z92.3 Personal history of irradiation; Z98.890 Other specified postprocedural states; Z79.899 Other long term (current) drug therapy; Z85.048 Personal history of other malignant neoplasm of rectum, rectosigmoid junction, and anus
CPT/HCPCS: 0241U; 36415; 71045; 71260; 74230; 80048; 80069; 82803; 82947; 83605; 83735; 83880; 84100; 84145; 84478; 84484; 85025; 85027; 85379; 87040; 87070; 87205; 87493; 92526; 92610; 92611; 93005; 93010; 94640; 94660; 94664; 94760; 94762; 96365; 96367; 97162; 97165; 97530; 99285-25; A9270; C1751; J0456; J0696; J1650; J1940; J1956; J2060; J2405; J2919; J3411; J7050; J7060; Q9967